=== PATIENT | male | born 1950 | race Caucasian/White ===

== ENCOUNTER → 2016-12-29 | Outpatient (CLI) | payer MEDICARE ==
[~2016-12-29] MED LIST: APIX5TAB PO; CARV25TA2 PO; DILT360C25 PO; FURO40TA5 PO; GABA-336 PO; POTA20TA10 PO; TAMS0.4C47 PO; VERA180T8 PO
--- NOTE | 2016-12-29 11:17 | DI ---
Indication: ITS.REASON: R91.1 PULMONARY NODULE PROCEDURE: CT CHEST W/O CONTRAST: Encounter: Subsequent Comparison: CT angiogram of the chest dated November 04, 2016 Technique: Axial CT images were performed through the chest without intravenous contrast. Coronal and sagittal two-dimensional reformats. Automated Exposure Control and Iterative Reconstruction dose reducing techniques were utilized. Findings: 7 mm right upper lobe pulmonary nodule is unchanged on axial image #10. Paraseptal emphysema is redemonstrated. The prior pleural effusions have resolved. Chronic pleural thickening and scarring in the lingula is unchanged. No new or enlarging pulmonary nodule or mass. This tiny calcified granulomas in the left lower lobe. No pneumothorax. The central airways are patent. No axillary or mediastinal adenopathy. Heart size is stable. Trace pericardial effusion. The upper abdomen shows no acute findings. Bone windows are unremarkable. Impression: 1. Stable size and appearance of the 7 mm right upper lobe pulmonary nodule. Recommend follow-up noncontrast chest CT in 9-12 months to document continued stability. 2. Interval resolution of the prior pleural effusions .
== END ==
LOC: IMA 10:42
PROVIDERS: ATTEND Internal Medicine
DX: R91.1 Solitary pulmonary nodule (principal)

== ENCOUNTER 2017-01-31 13:44 | Outpatient (CLI) | payer MEDICARE ==
[~2017-01-31] VITALS: Ht 182.9 cm; Wt 60.1 kg
[~2017-01-31 13:44] MED LIST changes: +NORMAL SALINE 1,000 ML IV SCH
--- NOTE | 2017-01-31 13:50 | NUR ---
ADMIT PT ADMITTED TO ROOM 122 AT THIS TIME VIA AMBULATORY STATUS. PT USES A CANE TO AMBULATE. PT'S SISTER PRESENT UPON ADMIT. PT REPOSITIONED SELF IN BED. WILL CONTINUE TO MONITOR.
[2017-01-31 13:53] VITALS: Ht 182.9 cm; Wt 60.1 kg
[2017-01-31] MEDS ORDERED: GABA-336 PO (14:15)
[2017-01-31] MEDS ORDERED: DILT180C63 PO (14:15)
[2017-01-31] MEDS ORDERED: AMIO200T2 PO (14:15)
[2017-01-31] MEDS ORDERED: FURO40TA5 PO (14:15)
[2017-01-31] MEDS ORDERED: FERR324T4 PO (14:15)
[2017-01-31] MEDS ORDERED: CARV12.5 PO (14:15)
[2017-01-31 14:18] VITALS: BP 173/93; PULSE 122; RESP 20; TEMP 98.2; O2SAT 99
[2017-01-31 14:20] VITALS: PULSE 122; RESP 20
--- NOTE | 2017-01-31 14:25 | NUR ---
CM CM IN TO VISIT PATIENT, HE IS A&O. FEMALE IS AT THE BEDSIDE. PATIENT PLANS TO DISCHARGE HOME, DENIES ANY DISCHARGE NEEDS. CM CONTACT INFORMATION PROVIDED. Addendum: 01/31/17 at 1425 by PARIS HU RN Amended: Links added.
[2017-01-31 15:04] LABS: BASOPHILS % (AUTO) 0.2 % (0-2); EOSINOPHILS # (AUTO) 0.1 T/MM3 (0-0.5); EOSINOPHILS % (AUTO) 0.8 % (0-4); HCT - HEMATOCRIT 43.6 % (41-53); HGB - HEMOGLOBIN 15.1 GM/DL (13.5-17.5); LYMPHOCYTES % (AUTO) 16.8 % (23-45); MEAN CORPUSCULAR HGB 33.6 UUG (26-34); MEAN CORPUSCULAR HGB CONC(MCHC 34.6 GM/DL (31-37); MEAN CORPUSCULAR VOLUME 96.9 UM3 (80-100); MEAN PLATELET VOLUME 9.9 UM3 (9.4-12.4); MONOCYTES # (AUTO) 0.5 T/MM3 (0-0.8); MONOCYTES % (AUTO) 7.3 % (0-9.0); NEUTROPHILS #(AUTO)-ABSOLUTE 4.7 T/MM3 (1.8-7.7); NEUTROPHILS % (AUTO) 74.9 % (33-66); WBC - WHITE BLOOD COUNT 6.2 T/MM3 (4.5-11.0)
[2017-01-31 15:11] LABS: ANION GAP 15 MEQ/L (5-15); BUN/CREATININE RATIO 12 RATIO (6-26); CALCIUM 9.2 MG/DL (8.4-10.2); CHLORIDE 96 MEQ/L (98-107); CO2 - CARBON DIOXIDE 27 MEQ/L (22-30); GLOMERULAR FILTRATION RATE 74; GLUCOSE 135 MG/DL (75-110); SODIUM 138 MEQ/L (134-144)
--- NOTE | 2017-01-31 16:10 | NUR ---
TO [facility] PT TRANSPORTED TO [facility] AT THIS TIME VIA CART. INFORMED CONSENT OBTAINED PRIOR TO TRANSFER. SISTER PRESENT UPON TRANSFER TO [facility]. PT ATTEMPTED TO VOID PRIOR TO TRANSFER HOWEVER UNSUCCESSFUL. WILL CONTINUE TO MONITOR CLOSELY.
[2017-01-31] MEDS ORDERED: HEPARIN 1,000units in NS 500ml BAG IV ONE (16:16)
[2017-01-31] MEDS ORDERED: LIDOCAINE 1% (10mg/ml) 30ml SDV ONE (16:16)
[2017-01-31] MEDS ORDERED: MIDAZOLAM 2mg/2ml INJECTION ONE (16:19)
[2017-01-31] MEDS ORDERED: FENTANYL 100mcg/2ml INJECTION ONE (16:19)
[2017-01-31] MEDS ORDERED: DILTIAZEM 25mg/5ml INJECTION IV ONE (16:27)
[2017-01-31] MEDS ORDERED: POTASSIUM CHLORIDE 20 MEQ TABLET ONE (16:27)
[2017-01-31] MEDS ORDERED: VERAPAMIL 5mg/2ml INJECTION IV ONE (16:38)
[2017-01-31] MEDS ORDERED: METOPROLOL 5mg/5ml INJECTION IV ONE ×2 (17:02→17:17)
[2017-01-31] MEDS ORDERED: NITROGLYCERIN 0.4 MG SUBLINGUAL TABLET SL PRN (17:15)
[2017-01-31] MEDS ORDERED: ONDANSETRON 4mg/2ml INJECTION IV PRN (17:15)
[2017-01-31] MEDS ORDERED: BISACODYL 10 MG SUPPOSITORY RECTALLY PRN (17:15)
[2017-01-31] MEDS ORDERED: LORAZEPAM 0.5 MG TABLET PO PRN (17:15)
[2017-01-31] MEDS ORDERED: MORPHINE SULFATE 4 MG SYRINGE IV PRN ×2 (17:15)
[2017-01-31] MEDS ORDERED: PROMETHAZINE 25 MG INJECTION IV PRN (17:15)
[2017-01-31] MEDS ORDERED: MILK OF MAGNESIA 30 ML SUSP PO PRN (17:15)
[2017-01-31] MEDS ORDERED: METOCLOPRAMIDE 10mg/2ml INJECTION IV PRN (17:15)
[2017-01-31] MEDS ORDERED: LORAZEPAM 2 MG/ML INJECTION IV PRN (17:15)
[2017-01-31] MEDS ORDERED: BISACODYL 5 MG E.C. TABLET PO PRN (17:15)
[2017-01-31] MEDS ORDERED: ACETAMINOPHEN 325 MG TABLET PO PRN (17:15)
[2017-01-31] MEDS ORDERED: ATROPINE 1 MG/ML VIAL IV PRN (17:15)
[2017-01-31] MEDS ORDERED: MAG-AL + SIM LIQUID 30 ML UDC PO PRN (17:15)
[2017-01-31] MEDS ORDERED: HYDROCODONE/APAP 5 mg/325 mg TABLET PO PRN (17:15)
[2017-01-31] MEDS ORDERED: DIGOXIN 500mcg/2ml INJECTION ONE (17:24)
[2017-01-31] MEDS ORDERED: DILTIAZEM 125 MG in NORMAL SALINE 125 ML IV SCH (17:30)
--- NOTE | 2017-01-31 18:15 | NUR ---
TRANSFER PT TRANSFERRED TO [facility] CICU AT THIS TIME FROM [facility] FOR FURTHER CARDIOVASCULAR SURGERY CONSULT. PT'S SISTERS PRESENT UPON TRANSFER. ALL PERSONAL BELONGINGS AND HOME MEDICATIONS TRANSFERRED WITH PT. PT AND SISTERS VERBALIZED UNDERSTANDING OF DISCHARGE DISPOSITION. DISCHARGE INSTRUCTIONS PRINTED AND SENT WITH PT TO [facility]. NO FURTHER CONCERN BY PT OR PT'S SISTERS AT THIS TIME.
--- NOTE | 2017-02-01 12:24 | CVPROF ---
DATE 01/31/2017 PRIMARY CARE PHYSICIAN [facility] INDICATION The patient is a 66-year-old gentleman with history of peripheral arterial disease and atrial fibrillation with rapid ventricular rate, status post ablation and also status post lower extremity surgical revascularization who had an abnormal lower extremity duplex study and atrial fibrillation with rapid ventricular rate and was referred for further evaluation by angiography. INFORMED CONSENT Informed consent was obtained after explaining the procedure and the potential risks to the patient who agreed to proceed with the procedure. PROCEDURE 1. Abdominal aortography by placing catheter in abdominal aorta. 2. Selective right lower extremity angiogram by placing catheter in right common iliac. 3. Selective left lower extremity angiogram by placing catheter in left common iliac. TECHNIQUE Patient was prepped and draped in the usual sterile techniques. Conscious sedation was performed using Versed and Fentanyl. 1% Lidocaine was used for local anesthesia. Using modified Seldinger technique, arterial access was obtained into the right femoral artery. We tried to advance the wire into the abdominal aorta however it would not cross the external iliac and therefore we changed our approach to radial artery. 1% lidocaine was used for local anesthesia. Using modified Seldinger technique, arterial access was obtained into right radial artery with placement of a 6 [place] arterial sheath. ABDOMINAL AORTOGRAPHY Abdominal aortography showed patent abdominal aorta with patent celiac trunk and SMA. Right renal artery had about 70% stenosis. Left renal artery was not visualized well. Iliacs appeared to have severe disease. SELECTIVE RIGHT LOWER EXTREMITY ANGIOGRAM Selective right lower extremity angiogram showed patent right common iliac. Right external iliac artery was occluded at the ostium. Right internal iliac artery was patent. Right common femoral artery had eccentric 80% stenosis. Right SFA was occluded at the ostium. Right profunda was patent. Right popliteal artery reconstitution was noted distally. Right posterior tibia and peroneal arteries appeared to be patent and right anterior tibial artery was not visualized well. Distal vessels were not visualized well due to upstream occlusion of the vessels and lack of adequate contrast penetration. SELECTIVE LEFT LOWER EXTREMITY ANGIOGRAM Selective left lower extremity angiogram showed patent left common iliac with 80% stenosis. Left external iliac had 90% stenosis. Left internal iliac had 90% stenosis. Left common femoral artery was patent. Left SFA was occluded at the ostium. Left profunda was patent. Reconstitution of the left popliteal artery was noted. Left anterior tibial artery was patent with 80% stenosis. Left posterior tibial artery was patent with 90% stenosis. Left peroneal artery was not visualized well. Patient tolerated the procedure well, with no complications. IMPRESSION 1. Severe peripheral arterial disease as described above. PLAN Will transfer him ti [place] for evaluation by vascular surgeon. We will start him on anticoagulation. Of note, patient was in atrial flutter with rapid ventricular rate and multiple doses of verapamil, diltiazem and metoprolol were administered with no significant improvement in heart rate. Patient may require drips to maintain rate. Will consult electrophysiology in [place] for further evaluation since patient has had ablation in the past. BRENDAN
--- NOTE | 2017-02-01 15:33 | NUR ---
DM Screen Pt transferred to [facility] therefore DM Screen not completed. No further plan for follow up.
== END 2017-01-31 18:15 | disposition short-term general hospital (02) ==
LOC: CATH 13:44 → SRG 13:44 → CATH 18:15
PROVIDERS: ATTEND Internal Medicine Cardiovascular Disease
DX: I70.203 Unspecified atherosclerosis of native arteries of extremities, bilateral legs (principal); I70.1 Atherosclerosis of renal artery; I48.1 Persistent atrial fibrillation; R93.6 Abnormal findings on diagnostic imaging of limbs; Z98.890 Other specified postprocedural states; I47.2 Ventricular tachycardia; I42.9 Cardiomyopathy, unspecified; I12.9 Hypertensive chronic kidney disease with stage 1 through stage 4 chronic kidney disease, or unspecified chronic kidney disease; N18.9 Chronic kidney disease, unspecified; F17.210 Nicotine dependence, cigarettes, uncomplicated; Z68.1 Body mass index [BMI] 19.9 or less, adult; Z95.810 Presence of automatic (implantable) cardiac defibrillator; Z79.899 Other long term (current) drug therapy; Z82.49 Family history of ischemic heart disease and other diseases of the circulatory system
CPT/HCPCS: 36245; 36415; 75625; 75716; 80048; 85025; 93005; A9270; C1769; C1893; J1160; J1644; J2250; J3010; J3490; J7030; Q9967

== ENCOUNTER 2017-05-11 11:54 | Observation (INO) ==
--- NOTE | 2017-05-11 12:11 | Emergency Department Report ---
Asthma HPI - General Stated Complaint: SOA Time Seen by Provider: 05/11/17 12:10 Source: patient, family, old records reviewed Mode of arrival: EMS Limitations: other (phyical condition, patient is poor historian) - History of Present Illness HPI Narrative: 67 YO M brought to ED by EMS for difficulty breathing that started this morning. Patient has has hx. of a-fib and CHF. Sister says that patient has no known lung disease. Patient does smoke 2 packets of cigarettes daily since age 12. Patient states it has not taken any of his prescribed medication this morning. Does not know what medications he takes in the morning. Says that his sister manages his medications. Sister arrives ED and says patient has been coughing "a lot" for last 2-3 weeks. Sister says patient woke up not feeling well this morning. Sister denies any hx. of COPD or other respiratory problems. Patient was given 2 albuterol tx. and 125mg of solu-medrol in route to hospital. Patient's file clerk data entry is Dr. Curran. complaint: shortness of breath Onset (ago): hour(s) Severity: moderate Context: none known Associated symptoms: other (cough) - Related Data Home Medications Medication Instructions Recorded Confirmed Apixaban [Eliquis] 5 mg PO BID #0 11/15/16 05/11/17 Amiodarone HCl 200 mg PO DAILY #0 tab 01/31/17 05/11/17 Gabapentin 100 mg PO TID #0 cap 01/31/17 05/11/17 dilTIAZem HCl [Cardizem Cd] 180 mg PO DAILY #0 cap 01/31/17 05/11/17 Atorvastatin [Lipitor] 20 mg PO HS 05/11/17 05/11/17 Carvedilol 25 mg PO BID 05/11/17 05/11/17 Clopidogrel [Plavix] 75 mg PO DAILY 05/11/17 05/11/17 Potassium Chloride ER Tab [K-Dur] 10 meq PO WB 05/11/17 05/11/17 Allergies Allergy/AdvReac Type Severity Reaction Status Date / Time No Known Drug Allergies AdvReac Unknown Verified 05/11/17 12:05 Review of Systems All systems: reviewed and negative except as stated Cardiovascular: Reports: dyspnea on exertion, orthopnea Respiratory: Reports: as per HPI, dyspnea PFSH Diabetes Hypertension Atrophia relation CAD CHF PAD Pancreatitis Renal insufficiency CVA Alcohol abuse Dementia Surgical History: Appendectomy. Tonsillectomy. Implantable defibrillator. Cardiac Ablasion Family History: Noncontributory - Social History Smoking status: Current every day smoker packs per day: 2 Packs-years: 55 Alcohol intake frequency: former alcohol drinker Current occupational status: retired Physical Exam - General General appearance: alert - Normal Exams: Head:: Normocephalic without trauma Eyes:: No scleral icterus, irritation ENMT:: No facial trauma, nasal exudates Abdomen:: Bowel sounds positive, soft, non-tender, non-distended Musculoskeletal:: No tenderness, or deformity noted Neurological:: Patient is alert Psychiatric:: Patient exhibits, appropriate attention - Respiratory Respiratory exam: Present: crackles (bibasilar). Absent: wheezes - Expanded Respiratory Exam Location: Upper: decreased breath sounds, Lower: decreased breath sounds - Cardiovascular Cardiovascular exam: Present: other (regular-irregular) - Skin Skin exam: Present: warm, dry, other (pale) Course - Consultations Consultation #1: I discussed patient HPI, PMH, labs, CXR, VS, EKG, exam findings with Dr. Grande. Dr. Grande would like patient started on Rocephin. She does not feel patient needs BC. Will admit observation status. Time: 13:25 Vital Signs Temperature 98.3 F 05/11/17 11:54 Respiratory Rate 26 H 05/11/17 11:54 Pulse Oximetry 100 05/11/17 11:54 Temperature 97.8 F 05/11/17 15:03 Pulse Rate 90 05/11/17 14:15 Respiratory Rate 20 05/11/17 20:05 Blood Pressure 170/75 H 05/11/17 14:15 Pulse Oximetry 93 05/11/17 20:05 Dyspnea - MDM Narrative Medical decision making narrative: Patient says he feels like he can breathe better after 40mg of lasix IV. Patient is able to hold oxygen saturation above 96 % off oxygen however he becomes more tachypneic and more tachycardic without O2. WBC 11.0, no bandemia CO2 20 Troponin <0.012 Pro BNP 1900 Other labs noncontributory CXR show chronic pulmonary abnormalities with possible left sided infiltrates. I discussed labs, EKG and CXR with patient/sister and answered questions. Patient admitted observation status. - Differential Diagnosis Differential diagnosis: Likely: PE, Pneumonia, COPD exacerbation, Pulmonary edema systolic, Pulmonary edema dystolic - Medical Records Attestation: I reviewed the patient's medical records. - Lab Data Attestation: I reviewed the patient's lab results. Result diagrams: 05/11/17 12:21 05/11/17 12:21 Lab Results 05/11/17 05/11/17 05/11/17 Range/Units 12:21 12:21 13:37 WBC 11.0 (4.5-11.0) T/MM3 RBC 3.90 L (4.50-5.90) M/MM3 Hgb 13.1 L (13.5-17.5) GM/DL Hct 38.5 L (41-53) % MCV 98.7 (80-100) UM3 MCH 33.6 (26-34) UUG MCHC 34.0 (31-37) GM/DL RDW Std Deviation 51.4 H (36.9-50.2) FL Plt Count 222 (130-400) T/MM3 MPV 9.9 (9.4-12.4) UM3 Immature Gran % (Auto) Not performed Neut % (Auto) Not performed Lymph % (Auto) Not performed [place] % (Auto) Not performed Eos % (Auto) Not performed Baso % (Auto) Not performed Neut # Not performed Lymph # Not performed [place] # Not performed Eos # Not performed Baso # Not performed Abs Immat Gran (auto) Not performed Neutrophils % (Manual) 93.0 H (33-66) % Lymphocytes % (Manual) 2.0 L (23-45) % Monocytes % (Manual) 4.0 (0-9.0) % Basophils % (Manual) 1.0 (0-2) % Neutrophils # (Manual) 10.2 H (1.8-7.7) T/MM3 Lymphocytes # (Manual) 0.2 L (1-4.8) T/MM3 Monocytes # (Manual) 0.4 (0-0.8) T/MM3 Basophils # (Manual) 0.1 (0-0.2) T/MM3 RBC Morph Comment Normal Turbidity < 20 (0-20) Sodium 141 (134-144) MEQ/L Potassium 4.4 (3.6-5) MEQ/L Chloride 105 (98-107) MEQ/L Carbon Dioxide 20 L (22-30) MEQ/L Anion Gap 16 H (5-15) MEQ/L BUN 11.0 (9-20) MG/DL Creatinine 0.8 (0.8-1.5) MG/DL GFR Calculation 96 BUN/Creatinine Ratio 14 (6-26) RATIO Glucose 132 H (75-110) MG/DL Calculated Osmolality 272 (261-280) MOSM/KG Calcium 9.3 (8.4-10.2) MG/DL Magnesium 1.5 L (1.6-2.3) MG/DL Total Bilirubin 0.90 (0.20-1.30) MG/DL Icterus Index < 2 (0-7) AST 43 (17-59) U/L ALT 37 (21-72) U/L Alkaline Phosphatase 157 H (38-126) U/L Troponin I < 0.012 (0-0.12) ng/ml B-Natriuretic Peptide 1900 H (0-175) pg/mL Total Protein 8.0 (6.3-8.2) G/DL Albumin 4.8 (3.5-5.0) G/DL Globulin 3.2 (2.4-3.6) G/DL Albumin/Globulin Ratio 1.5 (1.1-2.2) RATIO TSH 1.21 (0.47-4.68) MIU/L Specimen Hemolysis < 15 (0-25) - Radiology Data Attestation: I reviewed the patient's radiology results. Chronic pulmonary abnormalities, possible left sided infiltrates (Dr. Donaldson) Disposition Clinical Impression: SIRS (systemic inflammatory response syndrome) Dyspnea Qualifiers: Dyspnea type: unspecified Qualified Code(s): R06.00 - Dyspnea, unspecified Disposition: [facility] Condition: Improved - Seen By: midlevel
[2017-05-11] MEDS ORDERED: FUROSEMIDE 40 MG/4 ML INJECTION IVP ONE (12:24)
--- NOTE | 2017-05-11 12:58 | XRay Report ---
Indication: dyspnea PROCEDURE: XR chest 1V: Encounter: Initial Comparison: CT chest dated December 29, 2016 and chest x-ray dated November 04, 2016 Findings: Lungs are hyperinflated with bilateral apical pleural thickening or scarring. There is some new hazy groundglass type opacity seen scattered throughout the left lung. There is chronic pleural thickening seen in both lung bases, left greater than right. Possible superimposed trace left effusion. No pneumothorax. Heart size and mediastinal contours are stable. Pulmonary vascularity is grossly unchanged. Impression: Multiple chronic pulmonary abnormalities with possible superimposed acute left sided infiltrate. .
[2017-05-11] MEDS ORDERED: NS 500 ML IV ONE (13:08)
[2017-05-11] MEDS ORDERED: CEFTRIAXONE (ER USE ONLY) 1 GM in NS 100 ML IV ONE (13:29)
--- NOTE | 2017-05-11 14:21 | History & Physical Report ---
<Chasity Mason V - Last Filed: 05/11/17 15:29> History of Present Illness Date: 05/11/17 Chief complaint: dyspnea HPI: Ochoa is a 67 yr male who is known to the Hospital services from previous admissions. He has in the past been under the care of Dr. Calvillo, however, is in the process of switching to Dr. Kurtis Steiner and has an appointment next Monday. He does see Dr. Curran for his chronic cardiac care. Today he was brought to the emergency room by his sister (DAILY) for worsening dyspnea. She reported that since there are other sibling, sister 2 weeks ago. Jerald has had a significant decline overall in his physical and mental health. She is nursing having increased shortness of breath and coughing for the past 2 weeks. Over the past 24 hours. His dyspnea has gotten significantly worse. He did not take any of his morning medications. On arrival to the emergency room. He is found to be tachycardic between 90 and 130. He is quite tachypnea in the 50s and blood pressures have been stable. Further workup was obtained in the emergency room. White count was found to be normal at 11, hemoglobin 13.1, hematocrit 38.5, platelet count 222, neutrophils 93%. He was 141, potassium 4.4, BUN 11, creatinine 0.8, glucose 132. LFTs are normal. Troponin undetectable, proBNP 1900. Venous lactate was found to be elevated at 2.4. Blood cultures were obtained. Patient was started on empiric antimicrobial coverage, Rocephin 1 gram IV. He was also given Lasix 40 milligrams IV 1 for diuresis seen. His chest x-ray revealed chronic pulmonary abnormalities with a questionable left-sided infiltrate. He is maintaining adequate saturations on room air. Given his acute symptoms. He does meet criteria for sirs with tachycardia and tachypnea. There is a questionable infiltrate. Despite maintain saturations and normal white count. Patient is a poor historian given his history of dementia and alcohol abuse. His sister, DAILY is at the bedside and gives all history. We discussed advanced directives and she wish for him to be a DNR. Review of Systems ROS unobtainable: due to mental status Review of systems: Unable to obtain accurate review of systems due to dementia and mental status. [facility] Patient Stated Medical History Atrial fibrillation Hypertension Congestive Heart Failure History of Myocardial Infarction History of CVA Diabetes Mellitus Type 2 Dementia History of alcohol abuse Peripheral artery disease Chronic anticoagulation Surgical History: Appendectomy. Tonsillectomy. Implantable defibrillator. 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 Calvillo. Establishing with Dr. Kurtis Steiner next week Medications Home Medications Medication Instructions Recorded Confirmed Type Apixaban [Eliquis] 5 mg PO BID #0 11/15/16 05/11/17 History Amiodarone HCl 200 mg PO DAILY #0 tab 01/31/17 05/11/17 History Gabapentin 100 mg PO TID #0 cap 01/31/17 05/11/17 History dilTIAZem HCl [Cardizem Cd] 180 mg PO DAILY #0 cap 01/31/17 05/11/17 History Atorvastatin [Lipitor] 20 mg PO HS 05/11/17 05/11/17 History Carvedilol 25 mg PO BID 05/11/17 05/11/17 History Clopidogrel [Plavix] 75 mg PO DAILY 05/11/17 05/11/17 History Potassium Chloride ER Tab [K-Dur] 10 meq PO WB 05/11/17 05/11/17 History Allergies Allergy/AdvReac Type Severity Reaction Status Date / Time No Known Drug Allergies AdvReac Unknown Verified 05/11/17 12:05 Exam Vital Signs: Temperature 98.3 F 05/11/17 11:54 Pulse Rate 107 H 05/11/17 13:00 Respiratory Rate 50 H 05/11/17 13:00 Blood Pressure 152/82 H 05/11/17 12:45 Pulse Oximetry 100 05/11/17 13:00 Telemetry Rhythm: A-fib with RVR Height: 1.8 m Weight: 65.2 kg - Constitutional Present: moderate distress - Routine HEENT Exam Head: Present: normocephalic, atraumatic Eye: Present: EOMI, PERRL ENT: Present: mucous membranes moist - Routine Respiratory Exam Present: respiratory distress, wheezes, crackles - Routine Cardiovascular Exam Present: S1, S2, tachycardia, irregular rhythm, irregularly irregular - Routine Abdominal Exam Present: soft, normoactive bowel sounds - Routine Extremities Exam Present: full ROM - Routine Skin Exam Present: intact, dry, warm - Routine Neurological Exam Present: alert Results - Labs CBC & Chem 7: 05/11/17 12:21 05/11/17 12:21 Microbiology Results: Microbiology 05/11/17 13:44 Peripheral/Iv Start Blood Culture - Preliminary Culture Initiated - Results Pending 05/11/17 13:40 Peripheral/Iv Start Blood Culture - Preliminary Culture Initiated - Results Pending Assessment and Plan (1) SIRS (systemic inflammatory response syndrome) Current visit: Yes Status: Acute (2) Dyspnea Current visit: Yes Status: Acute DVT Prophylaxis: Eliquis Resuscitation Status: Do Not Resuscitate Assessment and Plan: Impression SIRS(tachycardia, tachypnea) Acute Dyspnea Atrial fib with RVR Congestive heart failure. Next, and coronary artery disease. Type II diabetes Hypertension Dementia history of alcohol abuse Plan Admit patient to outpatient observation under the care of Dr. Grande for SIRS and dyspnea Patient does meet SIRS criteria, tachycardia, tachypnea, however, no specified infection at time of admission. QSOFA- 1/3- score= 1, which is negative at time of admission Ordered Blood cultures, venous lactate pending on admission. Patient empirically covered with IV Rocephin for pulmonary pathogens. Monitor patient on cardiac telemetry, cardiogenic consultation placed to Dr. Curran for further recommendations of diuresis and rate control. Monitor Accu-Cheks routinely. She is chronically Eliquis and Plavix rent a coagulation. Obtain TSH and magnesium for laboratory completeness. SCDs to bilateral lower extremity for DVT prophylaxis. Patient is a do not resuscitate and this orders are written Will discuss further orders and plan of care with attending, Dr. Grande. At time of discharge medical care will return to primary care provider who patient will be establishing with next week, Dr. Kurtis Steiner [facility] Course Summary Disclaimer: The visit summary below is not to be considered part of the above Progress Note. <Eliane Grande - Last Filed: 05/11/17 16:31> History of Present Illness Date: 05/11/17 [facility] Patient Stated Medical History Cardiac Arrhythmia Yes: AFib Congestive Heart Failure Yes Myocardial Infarction Yes: "three of them" Pneumonia Yes Diabetes Mellitus Type 2 Yes Exam Vital Signs: Temperature 97.8 F 05/11/17 15:03 Pulse Rate 90 05/11/17 14:15 Respiratory Rate 27 H 05/11/17 14:15 Blood Pressure 170/75 H 05/11/17 14:15 Pulse Oximetry 95 05/11/17 14:15 Oxygen Delivery Method Room Air Oxygen Flow Rate 2 Height: 1.8 m Weight: 65.2 kg Results - Labs CBC & Chem 7: 05/11/17 12:21 05/11/17 12:21 Microbiology Results: Microbiology 05/11/17 13:44 Peripheral/Iv Start Blood Culture - Preliminary Culture Initiated - Results Pending 05/11/17 13:40 Peripheral/Iv Start Blood Culture - Preliminary Culture Initiated - Results Pending Assessment and Plan (1) Dyspnea Problem details: Multifactorial Current visit: Yes Status: Acute Assessment and Plan: I have independently evaluated and examined this patient. I reviewed the chart, the patient's history, and the BOX SORTER/PA's documented findings as above. We discussed and formulated the assessment and plan as above with additions as below: Mr. Baca presents with increasing dyspnea and cough primarily over the past 24-48 hours. Patient is very vague historically. He denied nausea and vomiting although his sister indicated he has had several episodes of recent emesis. Patient also denied recent edema in his lower extremities which his sister contraindicated. Patient is had no recent chest pain by both historians. The patient is unsure of the nature of the sputum but reports cough has been productive. He is unsure of fever. He feels clinically improved after receiving breathing treatments in the emergency room and initiation of supplemental oxygen although hypoxia was not demonstrated. Ill-appearing male, generalized pallor, drowsy-falls asleep when not actively engaged in discussion Neck veins are not obviously distended and no anterior/posterior cervical adenopathy appreciated Decreased breath sounds throughout with bibasilar rhonchi and faint wheezing bilateral lung martin Low-grade tachycardia, rhythm is fairly regular at the time of my assessment Abdomen benign No lower extremity edema present currently Moves all extremities weakly and hypersensitive to touch/cold 4 extremities Chest x-ray reviewed by myself-hyperinflated lungs, probable left upper infiltrate; radiology describes pleural thickening at the lung bases and groundglass opacities throughout the lungs. Elevated BNP, lactic acid 2.4, procalcitonin less than 0.05, white count 11.0 with left shift Multifactorial acute respiratory failure-probable pneumonia-CAP versus aspiration (altered mental status/increased alcohol consumption recently), possible COPD exacerbation, probable component of CHF due to discontinuation of Lasix at some point in the past 2 months. Add prednisone 40 mg daily, ceftriaxone/doxycycline for CAP pending cultures. Diuretics resumed per cardiology. Discussed with ER provider and cardiology; supplemental history provided by patient's DPOA/sister, DO NOT RESUSCITATE confirmed, chest x-ray reviewed by myself, laboratory data reviewed and compared to prior hospital visits. Hospital Course Summary Disclaimer: The visit summary below is not to be considered part of the above Progress Note.
--- NOTE | 2017-05-11 14:31 | Cardiology Consult Note ---
History of Present Illness Consult date: 05/11/17 <Johanna Clark 05/11/17 14:44> Requesting physician: Eliane Grande <AmberJohanna benavides 05/11/17 14:44> Consult reason: congestive heart failure <Amber,Johanna Julia 05/11/17 14:44> Chief complaint: difficulty breathing <AmberJohanna 05/11/17 14:44> History of present illness: Severiano is a 66-year-old gentleman who is well known to Dr. Curran who has a history of Cardiomyopathy with [employer] AICD, persistent atrial fibrillation, HTN and CKD who was brought in by EMS for difficulty breathing. His sister called to have him transported and says patient has been coughing "a lot" for last 2-3 weeks with increased shortness of breath. Sister says patient woke up not feeling well this morning. Sister denies any history of COPD or other respiratory problems. He smokes 2 packs of cigarettes a day since age 12. He denies any chest pain. Dr Curran is consulted and the plan of care will be on rate control rather than rhythm control, and diuresis. <Johanna Clark 05/11/17 15:21> Review of Systems ROS unobtainable: due to mental status <AmberJohanna glasgow 05/11/17 15:21> [facility] Patient Stated Medical History Cardiac Arrhythmia Yes: AFib Congestive Heart Failure Yes Myocardial Infarction Yes: "three of them" Pneumonia Yes Diabetes Mellitus Type 2 Yes <Marc Curran - 05/15/17 15:58> Patient Stated Medical History Cardiac Arrhythmia Yes: Persistent AFib Congestive Heart Failure Yes Myocardial Infarction Yes Pneumonia Yes Diabetes Mellitus Type 2 Yes <Johanna Clark 05/11/17 14:44> Surgical History: Appendectomy. Tonsillectomy. Implantable defibrillator - [employer] AICD. Cardiac Ablasion <Johanna Clark 05/11/17 14:44> Family History: Brother- [place] Mother- heart disease <Johanna Clark 05/11/17 14:44> - Social History Smoking status: Current every day smoker <Johanna Clark 05/11/17 14:44> packs per day: 2 <Johanna Clark - 05/11/17 14:44> Substance use type: does not use <Johanna Clark - 05/11/17 14:44> Alcohol intake frequency: former alcohol drinker <Johanna Clark - 05/11/17 14 :44> Household members: family (sister and nephew), other (sister) <Johanna Clark - 05/12/17 16:16> Current occupational status: disabled <Johanna Clark - 05/12/17 16:16> Current residence: Apartment/Private Home <Johanna Clark - 05/12/17 16:16> Medications Home Medications Medication Instructions Recorded Confirmed Type Apixaban [Eliquis] 5 mg PO BID #0 11/15/16 05/11/17 History Amiodarone HCl 200 mg PO DAILY #0 tab 01/31/17 05/11/17 History Gabapentin 100 mg PO TID #0 cap 01/31/17 05/11/17 History dilTIAZem HCl [Cardizem Cd] 180 mg PO DAILY #0 cap 01/31/17 05/11/17 History Atorvastatin [Lipitor] 20 mg PO HS 05/11/17 05/11/17 History Carvedilol 25 mg PO BID 05/11/17 05/11/17 History Clopidogrel [Plavix] 75 mg PO DAILY 05/11/17 05/11/17 History Potassium Chloride ER Tab [K-Dur] 10 meq PO WB 05/11/17 05/11/17 History <Marc Curran - 05/15/17 15:58> Allergies Allergy/AdvReac Type Severity Reaction Status Date / Time No Known Drug Allergies AdvReac Unknown Verified 05/11/17 12:05 <Marc Curran - 05/15/17 15:58> Exam Vital signs: Temperature 98.1 F 05/12/17 07:31 Pulse Rate 84 05/12/17 07:20 Respiratory Rate 20 05/12/17 15:00 Blood Pressure 132/68 05/12/17 07:20 Pulse Oximetry 96 05/12/17 15:00 Oxygen Delivery Method Room Air Oxygen Flow Rate 2 <Marc Curran - 05/15/17 15:58> Temperature 98.3 F 05/11/17 11:54 Pulse Rate 107 H 05/11/17 13:00 Respiratory Rate 50 H 05/11/17 13:00 Blood Pressure 152/82 H 05/11/17 12:45 Pulse Oximetry 100 05/11/17 13:00 <Johanna Clark - 05/11/17 14:44> - Constitutional mild distress, cooperative <Johanna Clark 05/11/17 15:21> - Routine HEENT Exam Head: Present: normocephalic <Johanna Clark 05/11/17 15:21> ENT: Present: mucous membranes moist <Johanna Calrk 05/11/17 15:21> - Routine Neck Exam Present: carotid bruit (left) <Johanna Clark 05/11/17 14:44> - Routine Chest/Breast/Axilla Exam Chest wall: Absent: tenderness <Johanna Clark 05/11/17 15:21> - Routine Respiratory Exam Present: decreased breath sounds, wheezes. Absent: CTA bilaterally <Johanna Clark 05/11/17 15:21> - Routine Cardiovascular Exam Present: tachycardia, irregularly irregular <Johanna Clark 05/11/17 15:21> - Routine Abdominal Exam Present: soft, normoactive bowel sounds <Johanna Clark 05/11/17 15:21> - Routine Skin Exam Present: intact, warm <Johanna Clark 05/11/17 15:21> - Routine Neurological Exam Present: alert <Johanna Clark 05/11/17 15:21> - Routine Psychiatric Exam Present: normal affect <Johanna Clark 05/11/17 15:21> Results 05/12/17 04:38 05/12/17 04:38 <Marc Curran - 05/15/17 15:58> Abnormal Lab Results 05/11/17 05/11/17 05/11/17 16:53 17:35 23:20 WBC RBC Hgb Hct MCV MCH MCHC RDW Std Deviation Plt Count MPV Immature Gran % (Auto) Neut % (Auto) Lymph % (Auto) Pettis % (Auto) Eos % (Auto) Baso % (Auto) Neut # Lymph # Pettis # Eos # Baso # Abs Immat Gran (auto) Neutrophils % (Manual) Band Neutrophils % Lymphocytes % (Manual) Monocytes % (Manual) Neutrophils # (Manual) Band Neutrophils # Lymphocytes # (Manual) Monocytes # (Manual) RBC Morph Comment Turbidity Sodium Potassium Chloride Carbon Dioxide Anion Gap BUN Creatinine GFR Calculation BUN/Creatinine Ratio Glucose Calculated Osmolality Calcium Magnesium Icterus Index Troponin I < 0.012 < 0.012 Plasma Lactate 1.2 Specimen Hemolysis < 15 21 Adenovirus (PCR) Negative B.parapertussis DNA PCR Negative C. pneumoniae DNA (PCR) Negative Coronavirus OC43 (PCR) Negative Coronavirus HKU1 (PCR) Negative Coronavirus 229E (PCR) Negative Coronavirus NL63 (PCR) Negative Human Metapneumovirus Negative Influenza Type A (PCR) Negative Influenza Type B (PCR) Negative M. pneumoniae (PCR) Negative Parainfluenza 1 (PCR) Negative Parainfluenza 2 (PCR) Negative Parainfluenza 3 (PCR) Negative Parainfluenza 4 (PCR) Negative RSV (PCR) Negative Entero/Rhino (PCR) Negative 05/12/17 05/12/17 05/12/17 04:38 04:38 04:38 WBC 4.7 D RBC 3.78 L Hgb 12.6 L Hct 36.8 L MCV 97.4 MCH 33.3 MCHC 34.2 RDW Std Deviation 49.4 Plt Count 199 MPV 9.8 Immature Gran % (Auto) Not performed Neut % (Auto) Not performed Lymph % (Auto) Not performed Pettis % (Auto) Not performed Eos % (Auto) Not performed Baso % (Auto) Not performed Neut # Not performed Lymph # Not performed Pettis # Not performed Eos # Not performed Baso # Not performed Abs Immat Gran (auto) Not performed Neutrophils % (Manual) 91.0 H Band Neutrophils % 3.0 Lymphocytes % (Manual) 5.0 L Monocytes % (Manual) 1.0 Neutrophils # (Manual) 4.3 Band Neutrophils # 0.1 Lymphocytes # (Manual) 0.2 L Monocytes # (Manual) 0.0 RBC Morph Comment Normal Turbidity < 20 Sodium 136 Potassium 3.8 Chloride 98 D Carbon Dioxide 23 Anion Gap 15 BUN 19.0 D Creatinine 0.9 GFR Calculation 84 BUN/Creatinine Ratio 21 Glucose 215 H Calculated Osmolality 270 Calcium 8.9 Magnesium 1.9 D Icterus Index < 2 Troponin I < 0.012 Plasma Lactate Specimen Hemolysis < 15 Adenovirus (PCR) B.parapertussis DNA PCR C. pneumoniae DNA (PCR) Coronavirus OC43 (PCR) Coronavirus HKU1 (PCR) Coronavirus 229E (PCR) Coronavirus NL63 (PCR) Human Metapneumovirus Influenza Type A (PCR) Influenza Type B (PCR) M. pneumoniae (PCR) Parainfluenza 1 (PCR) Parainfluenza 2 (PCR) Parainfluenza 3 (PCR) Parainfluenza 4 (PCR) RSV (PCR) Entero/Rhino (PCR) <Johanna Clark - 05/12/17 16:16> - Imaging and Cardiology EKG results: image reviewed <Johanna Clark - 05/12/17 16:16> Imaging & Cardiology Narrative: Date of Exam: 05/11/17 Ordering Provider: Stacy Garcia APRN Type of Exam(s): XR chest 1V Reason for Exam(s): dyspnea Indication: dyspnea PROCEDURE: XR chest 1V: Encounter: Initial Comparison: CT chest dated December 29, 2016 and chest x-ray dated November 04, 2016 Findings: Lungs are hyperinflated with bilateral apical pleural thickening or scarring. There is some new hazy groundglass type opacity seen scattered throughout the left lung. There is chronic pleural thickening seen in both lung bases, left greater than right. Possible superimposed trace left effusion. No pneumothorax. Heart size and mediastinal contours are stable. Pulmonary vascularity is grossly unchanged. Impression: Multiple chronic pulmonary abnormalities with possible superimposed acute left sided infiltrate. <Johanna Clark - 05/12/17 16:16> EKG interpretations - MO, pacemaker, normal Pacemaker: ventricular pacing w/capture (except when refractory) <Johanna Clark - 05/12/17 16:16> Assessment and Plan (1) Dyspnea Status: Acute (2) Persistent atrial fibrillation Status: Acute (3) Other cardiomyopathies Status: Acute (4) Atherosclerosis of [place] artery of both lower extremities Status: Acute (5) Essential (primary) hypertension Status: Acute (6) Presence of automatic implantable cardioverter-defibrillator Status: Acute (7) Left carotid bruit Status: Acute (8) Acute on chronic systolic (congestive) heart failure Status: Acute <Marc Curran - 05/15/17 15:58> (1) Dyspnea Status: Acute (2) Persistent atrial fibrillation Status: Acute Resume home meds: Amiodarone, Cardizem, Eliquis and Coreg. Replace Mag. (3) Other cardiomyopathies Status: Acute (4) Atherosclerosis of [place] artery of both lower extremities Status: Acute Continue Aspirin and Plavix (5) Essential (primary) hypertension Status: Acute (6) Presence of automatic implantable cardioverter-defibrillator Status: Acute (7) Left carotid bruit Status: Acute (8) Acute on chronic systolic (congestive) heart failure Status: Acute Diurese with Lasix 40mg IV q12h. Home with Lasix 40mg po daily, monitor renal and electrolytes. Replace Mag. <Johanna Clark - 05/12/17 16:10> - Attestation Attestation Narrative: 05/15/17 15:55 Recommendation After examining the patient I agree with the above assessment. I am involved in the formulation of the patient's plan of care. <Marc Curran - 05/15/17 15:58> Hospital Course Summary Disclaimer: The visit summary below is not to be considered part of the above Progress Note. <Marc Curran - 05/15/17 15:58> The visit summary below is not to be considered part of the above Progress Note. <Johanna Clark - 05/11/17 14:44> Hospital Course: 05/11/17 SCHF:Diurese with Lasix 40mg IV q12h. Home with Lasix 40mg po daily, monitor renal and electrolytes. Replace Mag. AFib: Resume home meds: Amiodarone, Cardizem, Eliquis and Coreg. Replace Mag. PAD: Continue Aspirin and Plavix <Johanna Clark - 05/12/17 16:16>
[2017-05-11] MEDS ORDERED: FALL RISK - PHARMACY CONSULT XX ONE (15:25)
[2017-05-11] MEDS ORDERED: NS FLUSH BAG 500ml IV PRN (15:36)
[2017-05-11] MEDS: MAGNESIUM SULFATE 1gm PREMIX 1 GM/100 ML BAG IV SCH ×2 (15:46→17:33)
[2017-05-11] MEDS: CLOPIDOGREL 75 MG TABLET PO SCH (15:47)
[2017-05-11] MEDS: GABAPENTIN 100 MG CAPSULE PO SCH ×2 (15:47→20:33)
[2017-05-11] MEDS: CARVEDILOL 25 MG TABLET PO SCH (16:50)
[2017-05-11] MEDS: PredniSONE 20 MG TABLET PO SCH (16:50)
[2017-05-11] MEDS: AMIODARONE 200 MG TABLET PO SCH (17:52)
[2017-05-11] MEDS: APIXABAN 5 MG TABLET PO SCH (20:33)
[2017-05-11] MEDS: FUROSEMIDE 40 MG/4 ML INJECTION IVP SCH (20:33)
[2017-05-11] MEDS: ATORVASTATIN 20 MG TABLET PO SCH ×2 (20:34→22:09)
[2017-05-12] MEDS ORDERED: DiphenhydrAMINE 25 MG CAPSULE PO PRN (02:41)
[2017-05-12] MEDS ORDERED: ONDANSETRON ODT 4 MG TABLET PO PRN (02:49)
[2017-05-12] MEDS ORDERED: DiphenhydrAMINE 25 MG CAPSULE PO ONE (03:00)
[2017-05-12] MEDS ORDERED: DiphenhydrAMINE 25 MG CAPSULE PO SCH (03:00)
[2017-05-12] MEDS: SALINE FLUSH 10ml SYRINGE IVF PRN ×2 (03:11→08:49)
[2017-05-12 07:21] VITALS: BP 132/68; PULSE 84
[2017-05-12 07:32] VITALS: TEMP 98.1
[2017-05-12 07:48] VITALS: RESP 20
[2017-05-12] MEDS: FUROSEMIDE 40 MG/4 ML INJECTION IVP SCH (08:49)
[2017-05-12] MEDS: APIXABAN 5 MG TABLET PO SCH (08:49)
[2017-05-12] MEDS: CLOPIDOGREL 75 MG TABLET PO SCH (08:49)
[2017-05-12] MEDS: GABAPENTIN 100 MG CAPSULE PO SCH ×2 (08:50→14:51)
[2017-05-12] MEDS: PredniSONE 20 MG TABLET PO SCH (08:50)
[2017-05-12] MEDS: CARVEDILOL 25 MG TABLET PO SCH (08:50)
[2017-05-12] MEDS: AMIODARONE 200 MG TABLET PO SCH (08:56)
[2017-05-12] MEDS ORDERED: CEFTRIAXONE 1 G in NS 100 ML IV SCH (09:00)
[2017-05-12] MEDS ORDERED: TETANUS, DIPHTHERIA, a PERTUSSIS (Tdap) 0.5ml INJECTION IM ONE (15:09)
[2017-05-12 15:12] VITALS: O2SAT 96
[2017-05-12] MEDS ORDERED: PNEUMOCOCCAL 13 VACCINE 0.5ml INJECTION IM ONE (15:16)
[2017-05-12] MEDS ORDERED: DOBUTAMINE IV PRN (15:20)
--- NOTE | 2017-05-12 15:23 | Discharge Instructions ---
Discharge Plan - Med Rec/Dispo Referrals/Follow Up: Janis Steiner MD [Physician] - (Please follow up with Dr Steiner in 1 week Will need BMP at that time) Marc Curran MD [Physician] - (Please schedule follow up apt in 2 weeks) Prescriptions: New Furosemide [Lasix] 1 tab PO DAILY #30 tab Sacubitril/Valsartan 24-26 [Entresto 24 mg-26 mg Tablet] 1 tab PO BID #30 tablet PredniSONE [Deltasone] 40 mg PO WB #8 tablet Continue Apixaban [Eliquis] 5 mg PO BID #0 dilTIAZem HCl [Cardizem Cd] 180 mg PO DAILY #0 cap Gabapentin 100 mg PO TID #0 cap Atorvastatin [Lipitor] 20 mg PO HS Clopidogrel [Plavix] 75 mg PO DAILY Carvedilol 25 mg PO BID Potassium Chloride ER Tab [K-Dur] 10 meq PO WB Amiodarone HCl 200 mg PO DAILY #0 tab Discharge Instructions/Outpatient Orders: Final Provider Discharge Instructions Location: Determined By Patient - Disposition 01 Discharged Home, Self-Care
--- NOTE | 2017-05-12 15:45 | Discharge Summary ---
Discharge Information Date of admission: 05/11/17 13:37 <Melisa Argueta - 05/12/17 16:21> 05/11/17 13:37 <Chasity Mason V - 05/12/17 15:47> Anticipated date of discharge: 05/12/17 <Chasity Masno V - 05/12/17 15:47> Attending Physician: Eliane Grande MD <Melisa Argueta - 05/12/17 16:21> Eliane Grande MD <Chasity Mason V - 05/12/17 15:47> Primary care physician: John Paul Calvillo DO <Melisa Argueta - 05/12/17 16:21> Dr. Kurtis Steiner <Chasity Mason V - 05/12/17 15:47> Consults: 05/11/17 14:11 Physician Consult [CONS] Routine Consulting Provider: Marc Curran Reason For Exam: dyspnea Ordering Provider has Notified Roofer Applicator: No <Melisa Argueta - 05/12/17 16:21> 05/11/17 14:11 Physician Consult [CONS] Routine Reason For Exam: dyspnea Consulting Provider: Marc Curran Ordering Provider has Notified Roofer Applicator: No <Chasity Mason V - 05/12/17 15:47> - Discharge Diagnosis Discharge Diagnosis: Dyspnea- Improved CHF- Chronic Chronic A-fib DM PAD Dementia A call abuse Chronic anticoagulation <Chasity Mason V - 05/12/17 15:47> - Procedures Procedures: None <Chasity Mason V - 05/12/17 15:47> - Laboratory Labs: 05/12/17 04:38 05/12/17 04:38 <Melisa Argueta - 05/12/17 16:21> 05/12/17 04:38 05/12/17 04:38 <Chasity Mason V - 05/12/17 15:47> - Microbiology Microbiology 05/11/17 13:44 Peripheral/Iv Start Blood Culture - Preliminary No Growth After 1 Day 05/11/17 13:40 Peripheral/Iv Start Blood Culture - Preliminary No Growth After 1 Day <Melisa Argueta - 05/12/17 16:21> Microbiology 05/11/17 13:44 Peripheral/Iv Start Blood Culture - Preliminary No Growth After 1 Day 05/11/17 13:40 Peripheral/Iv Start Blood Culture - Preliminary No Growth After 1 Day <Chasity Mason V - 05/12/17 15:47> - Radiology Radiology: Chest Xray- multiple chronic pulmonary abnormalities <Chasity Mason V - 05/12/17 15:47> - Pathology None <Chasity Mason V - 05/12/17 15:47> History of Present Illness HPI: Ochoa is a 67 yr male who is known to the Hospital services from previous admissions. He has in the past been under the care of Dr. Calvillo, however, is in the process of switching to Dr. Kurtis Steiner and has an appointment next Monday. He does see Dr. Curran for his chronic cardiac care. Today he was brought to the emergency room by his sister (DAILY) for worsening dyspnea. She reported that since there are other sibling, sister 2 weeks ago. Jerald has had a significant decline overall in his physical and mental health. She is nursing having increased shortness of breath and coughing for the past 2 weeks. Over the past 24 hours. His dyspnea has gotten significantly worse. He did not take any of his morning medications. On arrival to the emergency room. He is found to be tachycardic between 90 and 130. He is quite tachypnea in the 50s and blood pressures have been stable. Further workup was obtained in the emergency room. White count was found to be normal at 11, hemoglobin 13.1, hematocrit 38.5, platelet count 222, neutrophils 93%. He was 141, potassium 4.4, BUN 11, creatinine 0.8, glucose 132. LFTs are normal. Troponin undetectable, proBNP 1900. Venous lactate was found to be elevated at 2.4. Blood cultures were obtained. Patient was started on empiric antimicrobial coverage, Rocephin 1 gram IV. He was also given Lasix 40 milligrams IV 1 for diuresis seen. His chest x-ray revealed chronic pulmonary abnormalities with a questionable left-sided infiltrate. He is maintaining adequate saturations on room air. Given his acute symptoms. He does meet criteria for sirs with tachycardia and tachypnea. There is a questionable infiltrate. Despite maintain saturations and normal white count. Patient is a poor historian given his history of dementia and alcohol abuse. His sister, DAILY is at the bedside and gives all history. We discussed advanced directives and she wish for him to be a DNR. <Chasity Mason V - 05/12/17 15:47> Hospital Course This is a general summary of the patient's hospital course. For more details refer to the complete medical record. <Melisa Argueta - 05/12/17 16:21> This is a general summary of the patient's hospital course. For more details refer to the complete medical record. <Chasity Mason V - 05/12/17 15:47> Hospital course: I have independently evaluated and examined this patient. I reviewed the chart, the patient's history, and the ELECTRICIAN UNDERGROUND/PA's documented findings as above. We discussed and formulated the assessment and plan as above with additions as below. The patient is laying in bed asking when he can go home. He is getting ready to undergo a breathing treatment. He denies any new problems. He did work with physical therapy and occupational therapy earlier today. He is on room air and he reports he is breathing without difficulty. In general, the patient is alert and oriented 3, cooperative with exam, and in no respiratory distress. HEENT: Head is atraumatic, normocephalic mucous membranes are moist and pink. Lungs: Clear to auscultation without wheezes, crackles or rhonchi CV: Regular rate and rhythm without murmur Abdomen: Soft, nontender, bowel sounds are present, there is no guarding no rebound. Extremities: No clubbing, no cyanosis, no edema. Skin: Warm and dry no sign of rash Neuro: Patient is alert The patient has been seen by Dr. Robertson who has left his recommendations for discharge. He will be restarted on his Lasix. <Melisa Argueta - 05/12/17 16:21> Jerald was admitted yesterday under the care of the hospitalist services for observation. At that time. He did meet sirs criteria with increased dyspnea. His Q Aguilar score at that time was 1, indicating negative for acute sepsis process. He was empirically covered with IV Rocephin. Given his other underlying pulmonology comorbidities. He was started on gentle diuresis seen and Dr. Curran was consulted for further cardiac evaluation. He did go a pacemaker interrogation that was negative. He was started on prednisone 40 milligrams daily to assist in pulmonary inflammation. Given likelihood of underlying COPD. Overnight Jerald improved significantly. His mentation has improved today. His breathing is less labored and he continues on room air without evidence of dyspnea. Did discuss discharge plans with cardiology team and Dr. Curran. He will be placing patient on a new medication Entresto (Sacubitril/Valsartan) 24-26. Patient is given a 30 day sample of this at time of discharge. He will also continue on Lasix 40 milligrams daily. He does chronically take potassium supplementation. Will give him for additional days of oral prednisone to assist with pulmonary inflammation. He is instructed to follow-up with his attending, Dr. Kurtis Steiner this week. He is also instructed to follow with cardiology in 2 weeks. Patient's sister, Raisa ([email or web address]) was contacted this afternoon. Reviewed plan of care, further questions. <Chasity Mason V - 05/12/17 15:47> DVT Prophylaxis: Eliquis <Chasity Mason V - 05/12/17 15:47> Discharge Plan - Med Rec/Dispo Referrals/Follow Up: Marc Curran MD [Physician] - (Please schedule follow up apt in 2 weeks) Janis Steiner MD [Physician] - (Please follow up with Dr Steiner in 1 week Will need BMP at that time) <Melisa Argueta - 05/12/17 16:21> Truven Instructions: A-fib (Atrial Fibrillation) (DC) <Melisa Argueta - 05/12/17 16:21> Prescriptions: New Furosemide [Lasix] 1 tab PO DAILY #30 tab Sacubitril/Valsartan 24-26 [Entresto 24 mg-26 mg Tablet] 1 tab PO BID #30 tablet PredniSONE [Deltasone] 40 mg PO WB #8 tablet Continue Apixaban [Eliquis] 5 mg PO BID #0 dilTIAZem HCl [Cardizem Cd] 180 mg PO DAILY #0 cap Gabapentin 100 mg PO TID #0 cap Atorvastatin [Lipitor] 20 mg PO HS Clopidogrel [Plavix] 75 mg PO DAILY Carvedilol 25 mg PO BID Potassium Chloride ER Tab [K-Dur] 10 meq PO WB Amiodarone HCl 200 mg PO DAILY #0 tab <Melisa Argueta - 05/12/17 16:21> Discharge Instructions/Outpatient Orders: Final Provider Discharge Instructions Location: Determined By Patient <Melisa Argueta 05/12/17 16:21>
[2017-05-12] MEDS ORDERED: PNEUMOCOCCAL VAC ADMIN CHARGE INJ ONE (15:59)
--- NOTE | 2017-05-12 16:20 | Cardiology Progress Note ---
Subjective Principal diagnosis: F/U Systolic CHF <Johanna Clark - 05/12/17 16:21> Interval history: Ochoa in sitting up in bed in his room on Medical. He denies chest pain or pressure, palpitations, dyspnea, dizziness or lightheadedness. <Johanna Clark - 05/12/17 16:21> Exam Vital signs: Temperature 98.1 F 05/12/17 07:31 Pulse Rate 84 05/12/17 07:20 Respiratory Rate 20 05/12/17 15:00 Blood Pressure 132/68 05/12/17 07:20 Pulse Oximetry 96 05/12/17 15:00 Oxygen Delivery Method Room Air Oxygen Flow Rate 2 <Marc Curran - 05/15/17 16:06> Temperature 98.1 F 05/12/17 07:31 Pulse Rate 84 05/12/17 07:20 Respiratory Rate 20 05/12/17 15:00 Blood Pressure 132/68 05/12/17 07:20 Pulse Oximetry 96 05/12/17 15:00 Oxygen Delivery Method Room Air Oxygen Flow Rate 2 <Johanna Clark - 05/12/17 16:21> - Constitutional no acute distress, thin, cooperative <Johanna Clark 05/12/17 16:21> - Routine HEENT Exam Head: Present: normocephalic <AmberJohanna Dumont 05/12/17 16:21> ENT: Present: mucous membranes moist <Johanna Clark 05/12/17 16:21> - Routine Neck Exam Present: carotid bruit. Absent: JVD <Johanna Clark Julia 05/12/17 16:21> - Routine Chest/Breast/Axilla Exam Chest wall: Absent: tenderness <AmberJohanna Julia 05/12/17 16:21> - Routine Respiratory Exam Present: CTA bilaterally. Absent: rales, wheezes <AmberJohanna glasgow 05/12/17 16:21> - Routine Cardiovascular Exam Present: irregularly irregular. Absent: JVD <Johanna Clark 05/12/17 16:21> - Routine Abdominal Exam Present: soft, normoactive bowel sounds <Johanna Clark 05/12/17 16:21> - Routine Extremities Exam Present: no edema <Johanna Clark 05/12/17 16:21> - Routine Skin Exam Present: intact, dry, warm <Johanna Clark 05/12/17 16:21> - Routine Neurological Exam Present: alert <Johanna Clark 05/12/17 16:21> - Routine Psychiatric Exam Present: normal affect <Johanna Clark 05/12/17 16:21> Progress Note-A&P (1) Dyspnea Status: Acute (2) Persistent atrial fibrillation Status: Acute (3) Other cardiomyopathies Status: Acute (4) Atherosclerosis of [place] artery of both lower extremities Status: Acute (5) Essential (primary) hypertension Status: Acute (6) Presence of automatic implantable cardioverter-defibrillator Status: Acute (7) Left carotid bruit Status: Acute (8) Acute on chronic systolic (congestive) heart failure Status: Acute <ChaparritaguanacoMarc - 05/15/17 16:06> (1) Dyspnea Status: Acute Assessment and plan: improved (2) Persistent atrial fibrillation Status: Acute (3) Other cardiomyopathies Status: Acute (4) Atherosclerosis of [place] artery of both lower extremities Status: Acute (5) Essential (primary) hypertension Status: Acute (6) Presence of automatic implantable cardioverter-defibrillator Status: Acute (7) Left carotid bruit Status: Acute (8) Acute on chronic systolic (congestive) heart failure Status: Acute Assessment and plan: No JVD today. Add Entresto 24/ po BID. <Johanna Clark 05/15/17 15:13> - Time Spent With Patient Total time spent is greater than 50% in coordination of care (as documented) at patient's floor/unit and/or counseling patient: <ChaparritaMarc blanc - 05/15/17 16:06> Total time spent is greater than 50% in coordination of care (as documented) at patient's floor/unit and/or counseling patient: <AmberJohanna Julia 05/12/17 16:21> less than 15 minutes <AmberJohanna Julia 05/15/17 15:13> - Attestation Attestation Narrative: Recommendation After examining the patient I agree with the above assessment. I am involved in the formulation of the patient's plan of care. <Marc Curran 05/15/17 16:06> Sepsis Assessment - Evaluation Sepsis screening result: No Definite Risk <Johanna Clark - 05/12/17 16:21> Hospital Course Summary Disclaimer: The visit summary below is not to be considered part of the above Progress Note. <Marc Curran - 05/15/17 16:06> The visit summary below is not to be considered part of the above Progress Note. <Johanna Clark - 05/12/17 16:21> Hospital Course: 05/11/17 SCHF:Diurese with Lasix 40mg IV q12h. Home with Lasix 40mg po daily, monitor renal and electrolytes. Replace Mag. AFib: Resume home meds: Amiodarone, Cardizem, Eliquis and Coreg. Replace Mag. PAD: Continue Aspirin and Plavix 05/12/17 16:20 No JVD today. Add Entresto po BID. Home with Lasix 40mg daily, Follow up in 2 weeks. <Johanna Clark - 05/12/17 16:21>
== END 2017-05-12 16:00 | disposition home or self-care (01) ==
LOC: ED 11:54 → MED 11:54
PROVIDERS: ADMIT Internal Medicine; ATTEND Internal Medicine

== ENCOUNTER 2017-06-15 09:59 | Inpatient (IN) ==
[2017-06-15] MEDS ORDERED: ONDANSETRON 4 MG/2 ML INJECTION IV ONE (10:02)
--- NOTE | 2017-06-15 10:13 | Emergency Department Report ---
General Adult HPI - General Stated complaint: Diff Breathing Time Seen by Provider: 06/15/17 10:13 Source: patient, EMS, old records reviewed Mode of arrival: EMS Limitations: no limitations - History of Present Illness HPI narrative: Patient is a 67-year-old male, presents to the emergency department for shortness of air. Patient was admitted overnight a few weeks ago with improvement of symptoms, did see his doctor yesterday everything was "fine". Patient woke this morning with significant shortness of air, difficulty breathing uses no oxygen at home. EMS was called patient's oxygen saturations were found to be in the 80s patient was audible wheezing, patient was given Solu -Medrol and 2 albuterol treatments in route. Onset (ago): hour(s) - Related Data Home Medications Medication Instructions Recorded Confirmed Apixaban [Eliquis] 5 mg PO BID #0 11/15/16 06/15/17 Amiodarone HCl 100 mg PO DAILY #0 tab 01/31/17 06/15/17 Gabapentin 100 mg PO TID #0 cap 01/31/17 06/15/17 dilTIAZem HCl [Cardizem Cd] 180 mg PO DAILY #0 cap 01/31/17 06/15/17 Atorvastatin [Lipitor] 20 mg PO HS 05/11/17 06/15/17 Carvedilol 25 mg PO BID 05/11/17 06/15/17 Clopidogrel [Plavix] 75 mg PO DAILY 05/11/17 06/15/17 Potassium Chloride [K-Dur] 10 meq PO WB 05/11/17 06/15/17 Furosemide [Lasix] 40 mg PO DAILY 06/04/17 06/15/17 Previous Rx's Medication Instructions Recorded Sacubitril/Valsartan 24-26 1 tab PO BID #30 tablet 05/12/17 [Entresto 24 mg-26 mg Tablet] Albuterol Inhaler [Ventolin Hfa 90 2 puff ORAL INH Q4H #2 inhaler 06/04/17 mcg/actuation] Fluticasone/Salmeterol 250/50 1 puff INH BID #1 inh 06/04/17 [Advair 250-50 Diskus] Allergies Allergy/AdvReac Type Severity Reaction Status Date / Time No Known Drug Allergies AdvReac Unknown Verified 06/15/17 11:09 Review of Systems Constitutional: Reports: weakness. Denies: fever, chills ENT: Denies: throat pain, dental pain Cardiovascular: Reports: palpitations, dyspnea on exertion. Denies: chest pain Respiratory: Reports: cough, dyspnea, wheezes Gastrointestinal: Reports: nausea. Denies: abdominal pain, vomiting Neurological: Denies: headache, weakness, numbness PFSH Patient Stated Medical History Cardiac Arrhythmia Yes: AFib Congestive Heart Failure Yes Myocardial Infarction Yes: "three of them" Pneumonia Yes Diabetes Mellitus Type 2 Yes Surgical History: Appendectomy. Tonsillectomy. Implantable defibrillator - [employer] AICD. Cardiac Ablasion - Social History Smoking status: Current every day smoker Substance use type: does not use Current residence: Apartment/Private Home Physical Exam - Limitations Limitations: no limitations - General General appearance: alert - ENT ENT exam: Present: normal oropharynx, mucous membranes moist - Neck Neck exam: Present: trachea midline - Chest Chest inspection: Present: symmetric chest wall rise, other (patient has large contusion on the right lower anterior chest). Absent: tenderness - Respiratory Respiratory exam: Present: wheezes, accessory muscle use, prolonged expiratory phase. Absent: respiratory distress, stridor - Cardiovascular Cardiovascular exam: Present: regular rate, irregular rhythm, normal heart sounds - Abdominal Exam Abdominal exam: Present: soft. Absent: distention, tenderness - Back Exam Back exam: Present: full ROM. Absent: tenderness, CVA tenderness (R) - Skin Skin exam: Present: warm, dry - Neurological Exam Neurological exam: Present: alert, oriented X3 Course Vital Signs Temperature 97.9 F 06/15/17 10:00 Pulse Rate 86 06/15/17 10:00 Respiratory Rate 22 06/15/17 10:00 Blood Pressure 155/92 H 06/15/17 10:00 Pulse Oximetry 91 06/15/17 10:00 Temperature 97.9 F 06/15/17 10:00 Pulse Rate 86 06/15/17 11:42 Respiratory Rate 21 06/15/17 11:42 Blood Pressure 120/68 06/15/17 11:42 Pulse Oximetry 91 06/15/17 11:42 Medical Decision Making - [facility] Narrative Medical decision making narrative: CHF exacerbation, COPD exacerbation, aspiration pneumonia, home where he embolus Discuss case with Dr. Grande, patient requiring 2 L by nasal cannula maintaining is to saturations. She will admit patient to observation status Pacemaker interrogated, no defibrillations, no abnormal beats since December - Medical Records Medical records reviewed: Yes: I reviewed the patient's medical records. - Lab Data Lab results reviewed: Yes: I reviewed the patient's lab results. Result diagrams: 06/15/17 10:19 06/15/17 10:19 Lab Results 06/15/17 06/15/17 06/15/17 Range/Units 10:19 10:19 10:19 WBC 9.5 (4.5-11.0) T/MM3 RBC 3.41 L (4.50-5.90) M/MM3 Hgb 11.4 L (13.5-17.5) GM/DL Hct 34.6 L (41-53) % MCV 101.5 H (80-100) UM3 MCH 33.4 (26-34) UUG MCHC 32.9 (31-37) GM/DL RDW Std Deviation 60.6 H (36.9-50.2) FL Plt Count 274 D (130-400) T/MM3 MPV 9.1 L (9.4-12.4) UM3 Immature Gran % (Auto) 0.3 (0.0-0.5) % Neut % (Auto) 80.1 H (33-66) % Lymph % (Auto) 9.2 L (23-45) % Andrew % (Auto) 9.9 H (0-9.0) % Eos % (Auto) 0.2 (0-4) % Baso % (Auto) 0.3 (0-2) % Neut # 7.6 (1.8-7.7) T/MM3 Lymph # 0.9 L (1-4.8) T/MM3 Andrew # 0.9 H (0-0.8) T/MM3 Eos # 0.0 (0-0.5) T/MM3 Baso # 0.0 (0-0.2) T/MM3 Abs Immat Gran (auto) 0.03 (0.00-0.03) T/MM3 Turbidity < 20 (0-20) Sodium 133 L (134-144) MEQ/L Potassium 4.3 (3.6-5) MEQ/L Chloride 98 (98-107) MEQ/L Carbon Dioxide 23 (22-30) MEQ/L Anion Gap 12 (5-15) MEQ/L BUN 12.0 (9-20) MG/DL Creatinine 0.9 (0.8-1.5) MG/DL GFR Calculation 84 BUN/Creatinine Ratio 13 (6-26) RATIO Glucose 186 H (75-110) MG/DL Calculated Osmolality 261 (261-280) MOSM/KG Calcium 9.6 (8.4-10.2) MG/DL Total Bilirubin 1.00 (0.20-1.30) MG/DL Icterus Index < 2 (0-7) AST 24 (17-59) U/L ALT 25 (21-72) U/L Alkaline Phosphatase 137 H (38-126) U/L Troponin I < 0.012 (0-0.12) ng/ml B-Natriuretic Peptide 8890 H (0-175) pg/mL Total Protein 7.2 (6.3-8.2) G/DL Albumin 4.5 (3.5-5.0) G/DL Globulin 2.7 (2.4-3.6) G/DL Albumin/Globulin Ratio 1.7 (1.1-2.2) RATIO Specimen Hemolysis < 15 (0-25) Alcohol, Quantitative <10 (<10) MG/DL - Radiology Data Radiology results reviewed: Yes: I reviewed the patient's radiology results. Chest x-ray: Possible aspiration pneumonia, versus infiltrate, versus edema - EKG Data EKG #1 EKG attestation: Yes: I reviewed and interpreted this EKG. Rate: normal Rhythm: A.Fib When compared to previous EKG there are: no significant changes Interpretation: no acute changes Disposition Clinical Impression: Acute exacerbation of chronic obstructive airways disease Disposition: 02 To [facility] Condition: Improved Time of Disposition: 11:26 - Seen By: physician
--- OUTSIDE RECORDS SUMMARY | 2017-06-15 10:18 | External Medical Summary ---
:1950 Author Organization [employer] Care Team Providers Name Role Phone John Paul Calvillo Provider Role Unavailable Allergies No Known Allergies Problems Problem Type Condition Code Onset Dates Condition Status Problem Automatic implantable cardiac V45.02 Active defibrillator in situ Problem Personal history of alcoholism V11.3 Active Problem Congestive heart failure, 428.0 Active unspecified Problem Type 2 diabetes mellitus with E11.40 Active diabetic neuropathy, unspecified Problem Hyperlipidemia, unspecified E78.5 Active Problem Essential (primary) hypertension I10 Active Problem Unspecified anemia 285.9 Active Problem Nondependent alcohol abuse, 305.00 Active unspecified drunkenness Problem Type 2 diabetes mellitus without E11.9 Active complications Problem Hypertension, benign 401.1 Active Problem Hypertension, benign 401.1 Active Problem Encounter for long-term (current) V58.69 Active use of other medications Assessment Type 2 diabetes mellitus without E11.9 Active complications Problem Atrial fibrillation 427.31 Active Problem Benign hypertensive heart disease 402.11 Active with heart failure Problem Encounter for long-term (current) V58.61 Active use of anticoagulants Medications Medication Code Code Instructions Start End Status Dosage System Date Date Metoprolol [facility][NOTE 3] [address]-28 100 MG Orally 1 tablet Tartrate Once a day [employer] Blood [facility][NOTE 3] 95139-[address] w/Device Dx May 27, as Glucose Kit code 250.00 2014 directed BID. Include meter, strips, and lancets Spironolactone [facility][NOTE 3] [address]-78 25 MG Orally 1 tablet Once a day Gabapentin [facility][NOTE 3] [address]-68 100 MG Orally Dec 01, as Three times a 2015 directed day Gabapentin [facility][NOTE 3] 16151445322 100 Orally as Three times a directed day Lisinopril [facility][NOTE 3] [address]-12 2.5mg Orally 1 tablet Once a day Digitek [facility][NOTE 3] 0 .2 mg Orally 1 tablet Once a day Furosemide [facility][NOTE 3] [address]-47 40 MG Orally 1 tablet Once a day Carvedilol [facility][NOTE 3] [address]-84 6.25 MG Orally 1 tablet Twice a day with food Metformin HCl [facility][NOTE 3] [address]-41 500 MG Orally 2 tablets Twice a day with meals Eliquis [facility][NOTE 3] 8478-7720-39 5mg PO BID 1 tab Procedures Procedure Coding System Code Date IH MicroAlb/Creat Ratio, Urine CPT-4 11905 Jul 12, 2016 URINALYSIS WITH MICROSCOPIC CPT-4 09258 Jul 12, 2016 IH MicroAlb/Creat Ratio, Urine CPT-4 56838 Jul 12, 2016 Results No Known Results Summary Purpose [employer] Submission
--- OUTSIDE RECORDS SUMMARY | 2017-06-15 10:18 | External Medical Summary ---
:1950 Author Organization [employer] Care Team Providers Name Role Thierno Méndez Provider Role Unavailable Allergies No Known Allergies Problems Problem Type Condition ICD-9 Code Onset Dates Condition Status Problem Hypertension, benign 401.1 Active Problem Benign hypertensive heart 402.11 Active disease with heart failure Problem Personal history of alcoholism V11.3 Active Problem Congestive heart failure, 428.0 Active unspecified Problem Nondependent alcohol abuse, 305.00 Active unspecified drunkenness Problem Atrial fibrillation 427.31 Active Problem Encounter for long-term V58.69 Active (current) use of other medications Problem Automatic implantable cardiac V45.02 Active defibrillator in situ Problem Encounter for long-term V58.61 Active (current) use of anticoagulants Medications No Known Medications Results No Known Results Summary Purpose [employer] Submission
--- OUTSIDE RECORDS SUMMARY | 2017-06-15 10:19 | External Medical Summary ---
:1950 Author Organization [employer] Care Team Providers Name Role Phone John Paul Calvillo Provider Role Unavailable Allergies No Known Allergies Problems Problem Type Condition Code Onset Dates Condition Status Problem Atrial fibrillation 427.31 Active Problem Automatic implantable cardiac V45.02 Active defibrillator in situ Problem Encounter for long-term (current) V58.61 Active use of anticoagulants Problem Type 2 diabetes mellitus without E11.9 Active complications Problem Hypertension, benign 401.1 Active Problem Hyperlipidemia, unspecified E78.5 Active Problem Personal history of alcoholism V11.3 Active Problem Congestive heart failure, 428.0 Active unspecified Problem Unspecified anemia 285.9 Active Problem Nondependent alcohol abuse, 305.00 Active unspecified drunkenness Problem Benign hypertensive heart disease 402.11 Active with heart failure Problem Hypertension, benign 401.1 Active Problem Encounter for long-term (current) V58.69 Active use of other medications Medications No Known Medications Results No Known Results Summary Purpose [employer] Submission
--- OUTSIDE RECORDS SUMMARY | 2017-06-15 10:19 | External Medical Summary ---
:1950 Author Organization [employer] Care Team Providers Name Role Thierno Méndez Provider Role Unavailable Allergies No Known Allergies Problems Problem Type Condition ICD-9 Code Onset Dates Condition Status Problem Benign hypertensive heart 402.11 Active disease with heart failure Problem Encounter for long-term V58.69 Active (current) use of other medications Problem Hypertension, benign 401.1 Active Assessment Hyposmolality and/or 276.1 Active hyponatremia Problem Nondependent alcohol abuse, 305.00 Active unspecified drunkenness Problem Personal history of alcoholism V11.3 Active Problem Diabetes Mellitus Type 2, not 250.00 Active stated as uncontrolled Problem Encounter for long-term V58.61 Active (current) use of anticoagulants Problem Atrial fibrillation 427.31 Active Problem Congestive heart failure, 428.0 Active unspecified Problem Automatic implantable cardiac V45.02 Active defibrillator in situ Medications No Known Medications Procedures Procedure Coding System Code Date [facility] CPT-4 23036 Jun 05, 2015 Results No Known Results Summary Purpose [employer] Submission
--- OUTSIDE RECORDS SUMMARY | 2017-06-15 10:19 | External Medical Summary ---
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
--- NOTE | 2017-06-15 11:11 | XRay Report ---
INDICATION: cough, shortness of air PROCEDURE: CHEST 2-VIEWS UPRIGHT (PA & LAT) Encounter: Initial COMPARISON: June 04, 2017 FINDINGS: Increasing airspace disease in the left lower lobe. Areas of chronic scarring in the right apex. Right lung is otherwise clear. No pneumothorax. New small pleural effusions with fluid along the left major fissure. Heart size and mediastinal contours are stable. Left cardiac pacemaker defibrillator. Pulmonary vascularity is unchanged. Impression: Increasing left lower lobe airspace with small pleural effusions could be due to pneumonia or aspiration. .
[2017-06-15 11:58] VITALS: BMI 21.0
--- NOTE | 2017-06-15 13:52 | History & Physical Report ---
<Maria Isabel Young - Last Filed: 06/15/17 13:35> History of Present Illness Date: 06/15/17 Chief complaint: shortness of breath HPI: Patient is a 67 year old male who recently established with Dr. Doll for his primary care. Patient was in to see his doctor yesterday for a "regular checkup " and states everything was good. This morning he woke up and was significantly short of breath. On arrival, EMS found his O2 sats were in the 80's. He was given Solu-Medrol and 2 albuterol treatments while in route the emergency room. In the emergency room his oxygen saturations were brought up to greater than 90 % with 2 L of oxygen per nasal cannula. His white count is normal. Sodium is slightly low. His BNP was 8890. Troponin was negative. Chest x-ray shows "increasing airspace disease in the left lower lobe" with small pleural effusions. His AICD was interrogated per ER report, with no abnormal beats since December. Patient is known to have dementia, his sister is his caregiver. The majority of his information from today's visit was gathered from the emergency room physician, previous hospital notes and patient's PCP. Of note, Dr. Doll recommended patient finish out his current supply of Eliquis and then discontinue. Given his frequent falls, he only wants him to continue on the Plavix. When patient was seen yesterday in the office, the was found to have a large hematoma on the chest due to a recent fall. Review of Systems Comprehensive ROS: completed and no additional positive findings except those as stated - Constitutional Constitutional: Present: other (insomnia-chronic) - Respiratory Respiratory: Present: cough ("cigarette hack"), dyspnea - Gastrointestinal Gastrointestinal: Present: nausea - Integumentary/Breasts Integumentary: Present: other (bruising on chest from recent fall) FOR[facility]LY [facility] Patient Stated Medical History Cardiac Arrhythmia Yes: AFib Congestive Heart Failure Yes Myocardial Infarction Yes: "three of them" Chronic Obstructive Pulmonary Yes Disease (COPD) Pneumonia Yes Diabetes Mellitus Type 2 Yes Surgical History: Appendectomy. Tonsillectomy. Implantable defibrillator - [employer] AICD. Cardiac Ablation Family History: Noncontributory - Social History Smoking status: Current every day smoker (2 packs per day) Substance use type: does not use Substance last used: days (ago) (3) Alcohol intake frequency: a few times a week (patient reports he used to drink at least 2 cocktails a day.) Household members: family (sister and sister's son) Current occupational status: retired Social history: PCP-Dr. Kurtis doll Medications Home Medications Medication Instructions Recorded Confirmed Type Apixaban [Eliquis] 5 mg PO BID #0 11/15/16 06/15/17 History Amiodarone HCl 100 mg PO DAILY #0 tab 01/31/17 06/15/17 History Gabapentin 100 mg PO TID #0 cap 01/31/17 06/15/17 History dilTIAZem HCl [Cardizem Cd] 180 mg PO DAILY #0 cap 01/31/17 06/15/17 History Atorvastatin [Lipitor] 20 mg PO HS 05/11/17 06/15/17 History Carvedilol 25 mg PO BID 05/11/17 06/15/17 History Clopidogrel [Plavix] 75 mg PO DAILY 05/11/17 06/15/17 History Potassium Chloride [K-Dur] 10 meq PO WB 05/11/17 06/15/17 History Furosemide [Lasix] 40 mg PO DAILY 06/04/17 06/15/17 History Aspirin Chewable [ASA] 81 mg PO DAILY 06/15/17 06/15/17 History Cyanocobalamin (B-12) [Vit. B-12] 1,000 mcg PO DAILY 06/15/17 06/15/17 History Hydrocodone/APAP 5/325 [[place] 1 tab PO HS PRN 06/15/17 06/15/17 History 5/325] Magnesium Oxide [Magox] 400 mg PO DAILY 06/15/17 06/15/17 History Allergies Allergy/AdvReac Type Severity Reaction Status Date / Time No Known Drug Allergies AdvReac Unknown Verified 06/15/17 11:09 Exam Vital Signs: Temperature 95.9 F L 06/15/17 11:56 Pulse Rate 95 06/15/17 11:56 Respiratory Rate 20 06/15/17 11:56 Blood Pressure 131/81 06/15/17 11:56 Pulse Oximetry 95 06/15/17 11:56 Height/Weight/BMI: Height 1.8 m Weight 68.4 kg Body Mass Index 21.0 Results - Labs CBC & Chem 7: 06/15/17 10:19 06/15/17 10:19 Labs: Laboratory Results - last 24 hr 06/15/17 06/15/17 06/15/17 10:19 10:19 10:19 WBC 9.5 RBC 3.41 L Hgb 11.4 L Hct 34.6 L MCV 101.5 H MCH 33.4 MCHC 32.9 RDW Std Deviation 60.6 H Plt Count 274 D MPV 9.1 L Immature Gran % (Auto) 0.3 Neut % (Auto) 80.1 H Lymph % (Auto) 9.2 L [place] % (Auto) 9.9 H Eos % (Auto) 0.2 Baso % (Auto) 0.3 Neut # 7.6 Lymph # 0.9 L [place] # 0.9 H Eos # 0.0 Baso # 0.0 Abs Immat Gran (auto) 0.03 Turbidity < 20 Sodium 133 L Potassium 4.3 Chloride 98 Carbon Dioxide 23 Anion Gap 12 BUN 12.0 Creatinine 0.9 GFR Calculation 84 BUN/Creatinine Ratio 13 Glucose 186 H Calculated Osmolality 261 Calcium 9.6 Total Bilirubin 1.00 Icterus Index < 2 AST 24 ALT 25 Alkaline Phosphatase 137 H Troponin I < 0.012 B-Natriuretic Peptide 8890 H Total Protein 7.2 Albumin 4.5 Globulin 2.7 Albumin/Globulin Ratio 1.7 Specimen Hemolysis < 15 Alcohol, Quantitative <10 - Imaging and Cardiology Chest x-ray Additional comments: CXR FINDINGS: Increasing airspace disease in the left lower lobe. Areas of chronic scarring in the right apex. Right lung is otherwise clear. No pneumothorax. New small pleural effusions with fluid along the left major fissure. Heart size and mediastinal contours are stable. Left cardiac pacemaker defibrillator. Pulmonary vascularity is unchanged. Impression: Increasing left lower lobe airspace with small pleural effusions could be due to pneumonia or aspiration. Assessment and Plan (1) CHF exacerbation Current visit: Yes Status: Acute DVT Prophylaxis: SCD's Resuscitation Status: Do Not Resuscitate Assessment and Plan: Assessment Acute on chronic heart failure Acute Dyspnea Atrial fibrillation Chronic anticoagulation Coronary artery disease. Type II diabetes Hypertension Hyperlipidemia Dementia History of alcohol abuse Tobacco addiction Plan Admit patient to outpatient observation under the care of Dr. Grande for dyspnea and hypoxia. With a normal white count, no fever, and nonproductive cough will hold off on antibiotics at this point. Higher likelihood his symptoms are related to CHF versus COPD exacerbation. Will diurese with IV Lasix and start DuoNeb and budesonide breathing treatments. Check daily weights and I&O's. Obtain sputum culture if possible Oxygen to keep sats greater than 90% Monitor patient on cardiac telemetry given his cardiac history. He is currently on Eliquis and Plavix, but his PCP recommended he stop the Eliquis when he is out of his current supply due to his frequent falls. Accu-Cheks 4 times a day Metformin 500 mg 2 tabs twice a day was listed on the patient's med list from his PCPs office. Patient's sister notes that he has not been taking that for "a while" because no refills were given on the prescription. Patient does not check blood sugars. Will restart metformin 500 mg twice a day and check an A1c and adjust as needed. SCDs to bilateral lower extremities for DVT prophylaxis Patient is a DO NOT RESUSCITATE code status. At time of discharge, medical care will return to primary care provider, Dr. Joshua doll. Sepsis Assessment - Evaluation Sepsis screening result: No Definite Risk Hospital Course Summary Disclaimer: The visit summary below is not to be considered part of the above Progress Note. Hospital Course: Acute on chronic heart failure Acute Dyspnea Atrial fibrillation-patient with AICD Chronic anticoagulation Coronary artery disease. Type II diabetes Hypertension Hyperlipidemia Dementia History of alcohol abuse Tobacco addiction 06/15/17 - admission for observation Admit patient to outpatient observation under the care of Dr. Grande for dyspnea and hypoxia. With a normal white count, no fever, and nonproductive cough will hold off on antibiotics at this point. Higher likelihood his symptoms are related to CHF versus COPD exacerbation. Will diurese with IV Lasix and start DuoNeb and budesonide breathing treatments. Check daily weights and I&O's. Obtain sputum culture if possible Oxygen to keep sats greater than 90% Monitor patient on cardiac telemetry given his cardiac history. He is currently on Eliquis and Plavix, but his PCP recommended he stop the Eliquis when he is out of his current supply due to his frequent falls. Accu-Cheks 4 times a day SCDs to bilateral lower extremities for DVT prophylaxis Patient is a DO NOT RESUSCITATE code status. At time of discharge, medical care will return to primary care provider, Dr. Joshua doll <Eliane Grande Filed: 06/15/17 21:52> History of Present Illness Date: 06/15/17 Exam Vital Signs: Temperature 96.5 F L 06/15/17 15:56 Pulse Rate 100 06/15/17 16:00 Respiratory Rate 18 06/15/17 19:50 Blood Pressure 130/70 06/15/17 15:56 Pulse Oximetry 96 06/15/17 19:50 Height/Weight/BMI: Height 1.8 m Weight 68.4 kg Body Mass Index 21.0 Results - Labs CBC & Chem 7: 06/15/17 14:24 06/15/17 10:19 Microbiology Results: Microbiology 06/15/17 15:12 Sputum, Expectorated Gram Stain - Final 06/15/17 15:12 Sputum, Expectorated Sputum Culture - Preliminary Culture Initiated - Results Pending Assessment and Plan (1) CHF exacerbation Current visit: Yes Status: Acute Assessment and Plan: I have independently evaluated and examined this patient. I reviewed the chart, the patient's history, and the [employer] JEWELER/PA's documented findings as above. We discussed and formulated the assessment and plan as above with additions as below: Ochoa is well known from prior hospitalizations. He presents with shortness of breath starting this morning without pleuritic pain. He initially denied cough but was coughing repetitively while evaluated. He denied sputum production initially but later indicated he's been spitting up small amounts of sputum which he can't characterize. He denied fevers or chills but reported he had some sweats earlier today without chest pain. His weight is up 6.4 kg from discharge on May 12 and chest x-ray demonstrates new pleural effusion and increased vascular markings with questionable streaky infiltrate in the left lower lobe of uncertain significance compared to prior film about a week ago. Patient has a known cardiomyopathy with ejection fraction of 25% couple years ago. In addition to problems noted above he has peripheral vascular disease. On examination the patient is fatigued but responds verbally although generally nonspecifically. Respirations were nonlabored but inspiration triggered cough, crackles were present at the bases but no wheezing appreciated Cardiac rhythm is irregular, I do not appreciate a gallop at this time. Chest x-ray reviewed by myself and compared to film in late May, as above. EKG also reviewed by myself demonstrating atrial fibrillation with old anteroseptal MS, low voltage in the limb leads, and incomplete left bundle. Does not appear to be pacing currently. Nonspecific presentation with hypoxia and dyspnea. Data supports acute on chronic systolic heart failure with elevated BNP and weight gain. Continue diuresis with Lasix 40 mg IV twice a day. Coarse cough, nonspecific infiltrate left lower lobe but no documented fever or leukocytosis, minimal sputum production-pneumonia unlikely. Patient incidentally complained of chronic insomnia and requests sleeping medications-mirtazapine initiated at 7.5 mg daily at bedtime. Patient is typically not on home oxygen, anticipate greater than 2 days to stabilize symptoms. With new onset hypoxia will convert to inpatient status. Discussed with Dr. Gonzalez, old records reviewed, chest x-ray/EKG reviewed by myself and compared to prior studies, laboratory data reviewed. Hospital Course Summary Disclaimer: The visit summary below is not to be considered part of the above Progress Note.
[2017-06-15] MEDS ORDERED: ONDANSETRON 4 MG/2 ML INJECTION IVP PRN (13:57)
[2017-06-15] MEDS ORDERED: ACETAMINOPHEN 325 MG TABLET PO PRN (13:57)
[2017-06-15] MEDS ORDERED: FUROSEMIDE 40 MG/4 ML INJECTION IVP ONE (14:06)
[2017-06-15] MEDS: SALINE FLUSH 10ml SYRINGE IVF PRN (14:16)
[2017-06-15] MEDS ORDERED: NICOTINE 21 MG PATCH TD PRN (14:26)
[2017-06-15] MEDS: GABAPENTIN 100 MG CAPSULE PO SCH ×2 (15:55→21:14)
[2017-06-15] MEDS: METFORMIN 500 MG TABLET PO SCH ×2 (15:55→18:04)
[2017-06-15] MEDS: ALBUTEROL/IPRATROPIUM 2.5mg-0.5mg/3ml NEB AEROSOL SCH ×2 (16:01→19:50)
[2017-06-15] MEDS: BUDESONIDE INH.SOLN 0.5mg/2ml NEB AEROSOL SCH ×2 (19:50→19:56)
[2017-06-15] MEDS: MIRTAZAPINE 15 MG TABLET PO SCH ×2 (21:13→21:22)
[2017-06-15] MEDS: SACUBITRIL/VALSARTAN 24/26mg TABLET PO SCH (21:13)
[2017-06-15] MEDS: SENNOSIDES 8.6 MG TABLET PO SCH (21:14)
[2017-06-15] MEDS: CARVEDILOL 12.5 MG TABLET PO SCH (21:15)
[2017-06-15] MEDS: APIXABAN 5 MG TABLET PO SCH (21:15)
[2017-06-15] MEDS: ATORVASTATIN 20 MG TABLET PO SCH (21:15)
[2017-06-15] MEDS ORDERED: HYDROCODONE/APAP 5mg/325mg TABLET PO PRN (21:44)
[2017-06-16] MEDS: ALBUTEROL/IPRATROPIUM 2.5mg-0.5mg/3ml NEB AEROSOL SCH ×4 (07:50→20:05)
[2017-06-16] MEDS: BUDESONIDE INH.SOLN 0.5mg/2ml NEB AEROSOL SCH ×2 (07:50→20:05)
[2017-06-16] MEDS: MAGNESIUM OXIDE 400 MG TABLET PO SCH (08:52)
[2017-06-16] MEDS: APIXABAN 5 MG TABLET PO SCH ×2 (08:53→21:47)
[2017-06-16] MEDS: GABAPENTIN 100 MG CAPSULE PO SCH ×3 (08:53→21:47)
[2017-06-16] MEDS: METFORMIN 500 MG TABLET PO SCH (08:53)
[2017-06-16] MEDS: ASPIRIN 81 MG CHEWABLE TABLET PO SCH (08:53)
[2017-06-16] MEDS: CARVEDILOL 12.5 MG TABLET PO SCH ×2 (08:53→17:51)
[2017-06-16] MEDS: SACUBITRIL/VALSARTAN 24/26mg TABLET PO SCH ×2 (08:53→21:48)
[2017-06-16] MEDS: CLOPIDOGREL 75 MG TABLET PO SCH (08:54)
[2017-06-16] MEDS: NICOTINE PATCH REMOVAL TD SCH (08:55)
[2017-06-16] MEDS: AMIODARONE 200 MG TABLET PO SCH (08:56)
[2017-06-16] MEDS ORDERED: FUROSEMIDE 40 MG TABLET PO SCH (09:00)
--- NOTE | 2017-06-16 09:10 | XRay Report ---
INDICATION: dyspnea, hypoxia, cough PROCEDURE: CHEST 2-VIEWS UPRIGHT (PA & LAT) Encounter: Initial COMPARISON: June 15, 2017 FINDINGS: Lungs are hyperinflated with emphysema. Slight improvement in aeration of the left lower lobe. Small pleural effusions have slightly decreased. No pneumothorax. Heart size and mediastinal contours are stable. Left cardiac pacemaker defibrillator. Pulmonary vascularity remains mildly congested. Impression: Improving aeration of the left lower lobe with decreasing pleural effusions. .
[2017-06-16] MEDS: SALINE FLUSH 10ml SYRINGE IVF PRN ×3 (09:45→22:24)
[2017-06-16] MEDS: FUROSEMIDE 40 MG/4 ML INJECTION IVP SCH ×2 (09:46→17:51)
[2017-06-16] MEDS: INSULIN ASPART 100unit/ml INJECTION SQ PRN ×2 (12:04→17:58)
--- NOTE | 2017-06-16 13:53 | Progress Note ---
<Maria Isabel Young - Last Filed: 06/16/17 15:19> Subjective: Patient seen today sitting in his bed. He reports he feels better and wants to go home. He has no complaints of shortness of breath. He states he did not sleep well, this is chronic for him. Objective Vital signs: Temperature 96.7 F L 06/16/17 08:00 Pulse Rate 78 06/16/17 08:00 Respiratory Rate 16 06/16/17 11:56 Blood Pressure 128/76 06/16/17 08:00 Pulse Oximetry 92 06/16/17 10:30 Height/Weight/BMI: Weight 68.6 kg - Constitutional Present: no acute distress, well nourished, well developed - Routine Respiratory Exam Present: CTA bilaterally, diminished air movement. Absent: wheezes Comments: Especially left lower lobe - Routine Cardiovascular Exam Present: RRR, S1, S2. Absent: murmur - Routine Abdominal Exam Present: soft, normoactive bowel sounds, non distended. Absent: tenderness - Routine Extremities Exam Present: clubbing, no edema, normal capillary refill - Routine Skin Exam Present: dry, warm - Routine Neurological Exam Present: alert - Routine Lymphatic Exam Lymphatic: Absent: adenopathy - Routine Psychiatric Exam Present: normal affect Results - Labs CBC & Chem 7: 06/16/17 04:24 06/16/17 04:24 Assessment and Plan (1) CHF exacerbation Current visit: Yes Status: Acute Assessment and Plan: Assessment Acute on chronic heart failure Acute Dyspnea Chronic insomnia Atrial fibrillation Chronic anticoagulation Coronary artery disease. Type II diabetes Hypertension Hyperlipidemia Dementia History of alcohol abuse Tobacco addiction Plan Chest x-ray shows some improvement. Continue on Lasix and breathing treatments. Still requiring some oxygen. Blood sugar up to 391. Sliding scale insulin was ordered. Increase his metformin to 1000 mg twice a day Sepsis Assessment - Evaluation Sepsis screening result: No Definite Risk Hospital Course Summary Disclaimer: The visit summary below is not to be considered part of the above Progress Note. Hospital Course: Acute on chronic heart failure Acute Dyspnea Atrial fibrillation-patient with AICD Chronic anticoagulation Coronary artery disease. Type II diabetes Hypertension Hyperlipidemia Dementia History of alcohol abuse Tobacco addiction 06/15/17 - admission for observation Admit patient to outpatient observation under the care of Dr. Grande for dyspnea and hypoxia. With a normal white count, no fever, and nonproductive cough will hold off on antibiotics at this point. Higher likelihood his symptoms are related to CHF versus COPD exacerbation. Will diurese with IV Lasix and start DuoNeb and budesonide breathing treatments. Check daily weights and I&O's. Obtain sputum culture if possible Oxygen to keep sats greater than 90% Monitor patient on cardiac telemetry given his cardiac history. He is currently on Eliquis and Plavix, but his PCP recommended he stop the Eliquis when he is out of his current supply due to his frequent falls. Accu-Cheks 4 times a day SCDs to bilateral lower extremities for DVT prophylaxis Patient is a DO NOT RESUSCITATE code status. At time of discharge, medical care will return to primary care provider, Dr. Joshua doll 06/16/17 Chest x-ray shows some improvement. Continue on Lasix and breathing treatments. Still requiring some oxygen. Blood sugar up to 391. Sliding scale insulin was ordered. Increase his metformin to 1000 mg twice a day <Eliane Grande - Last Filed: 06/16/17 17:53> Objective Vital signs: Temperature 98.4 F 06/16/17 16:00 Pulse Rate 81 06/16/17 16:00 Respiratory Rate 22 06/16/17 16:09 Blood Pressure 105/65 06/16/17 16:00 Pulse Oximetry 94 06/16/17 16:00 Height/Weight/BMI: Weight 68.6 kg Results - Labs CBC & Chem 7: 06/16/17 04:24 06/16/17 04:24 Assessment and Plan (1) CHF exacerbation Current visit: Yes Status: Acute Resuscitation Status: Do Not Resuscitate Assessment and Plan: I have independently evaluated and examined this patient. I reviewed the chart, the patient's history, and the [employer]ST[employer]ER/PA's documented findings as above. We discussed and formulated the assessment and plan as above with additions as below: Ochoa is much more alert today. He denies dyspnea today and is unsure what happened yesterday. Continues to have a minor cough but isn't coughing anything up. He thinks the breathing treatments have been helpful but isn't sure that he feels any better after 1 than before one today. He denied nausea or vomiting, denies chest pain, and continues to complain of difficulty sleeping. Patient is fully alert and cooperative, speech is fluent Respirations are nonlabored with good airflow, there are crackles at the left base Slightly irregular rhythm No edema Chest x-ray reviewed by myself-consistent with COPD, effusion is improved as is the infiltrate at the left base. Sputum culture with few neutrophils but many gram-positive cocci in pairs. Cannot exclude aspiration yesterday triggering presentation, weight unchanged, continue diuresis. Oxygenation improved-reassess overnight tonight. Anticipate discharge tomorrow. Metformin resumed-dose increased to pass dose due to persistent hyperglycemia. A1c 6.8 yesterday. Need to clarify when patient discontinued metformin. Hospital Course Summary Disclaimer: The visit summary below is not to be considered part of the above Progress Note.
[2017-06-16] MEDS: METFORMIN 1,000 MG TABLET PO SCH (17:57)
[2017-06-16] MEDS: ATORVASTATIN 20 MG TABLET PO SCH (21:47)
[2017-06-16] MEDS: MIRTAZAPINE 15 MG TABLET PO SCH (21:47)
[2017-06-16] MEDS: SENNOSIDES 8.6 MG TABLET PO SCH (21:47)
[2017-06-17] MEDS: INSULIN ASPART 100unit/ml INJECTION SQ PRN ×2 (06:15→17:28)
[2017-06-17] MEDS: BUDESONIDE INH.SOLN 0.5mg/2ml NEB AEROSOL SCH (08:12)
[2017-06-17] MEDS: ALBUTEROL/IPRATROPIUM 2.5mg-0.5mg/3ml NEB AEROSOL SCH ×3 (08:12→15:47)
[2017-06-17] MEDS: AMIODARONE 200 MG TABLET PO SCH (08:31)
[2017-06-17] MEDS: GABAPENTIN 100 MG CAPSULE PO SCH ×2 (08:32→15:23)
[2017-06-17] MEDS: SACUBITRIL/VALSARTAN 24/26mg TABLET PO SCH (08:32)
[2017-06-17] MEDS: METFORMIN 1,000 MG TABLET PO SCH ×2 (08:32→17:29)
[2017-06-17] MEDS: MAGNESIUM OXIDE 400 MG TABLET PO SCH (08:32)
[2017-06-17] MEDS: CLOPIDOGREL 75 MG TABLET PO SCH (08:32)
[2017-06-17] MEDS: APIXABAN 5 MG TABLET PO SCH (08:32)
[2017-06-17] MEDS: ASPIRIN 81 MG CHEWABLE TABLET PO SCH (08:32)
[2017-06-17] MEDS: SALINE FLUSH 10ml SYRINGE IVF PRN ×2 (08:33→17:29)
[2017-06-17] MEDS: FUROSEMIDE 40 MG/4 ML INJECTION IVP SCH (08:33)
[2017-06-17] MEDS: CARVEDILOL 12.5 MG TABLET PO SCH ×2 (08:33→17:29)
[2017-06-17] MEDS: NICOTINE PATCH REMOVAL TD SCH (08:34)
[2017-06-17] MEDS ORDERED: FALL RISK - PHARMACY CONSULT MC PRN (09:34)
--- NOTE | 2017-06-17 11:32 | Progress Note ---
<Maria Isabel Young - Last Filed: 06/17/17 17:20> Subjective: Severiano is seen lying in his bed today. He reports today is not a good day. He really will not say why. He wants to go home. He doesn't feel that his breathing is any worse. His appetite is good. He ate a good breakfast. Reports his bowels have been moving. He is having no pain, only minimal cough, is not lightheaded or dizzy. Objective Vital signs: Temperature 97.4 F 06/17/17 07:39 Pulse Rate 86 06/17/17 08:01 Respiratory Rate 20 06/17/17 08:12 Blood Pressure 110/65 06/17/17 07:39 Pulse Oximetry 95 06/17/17 08:12 Height/Weight/BMI: Weight 71.7 kg - Constitutional Present: no acute distress, well nourished, well developed - Routine Respiratory Exam Present: crackles (noted right midlung), distant breath sounds, diminished air movement. Absent: wheezes - Routine Cardiovascular Exam Present: irregularly irregular. Absent: murmur - Routine Abdominal Exam Present: soft, normoactive bowel sounds, non distended. Absent: tenderness - Routine Extremities Exam Present: no edema, normal capillary refill - Routine Skin Exam Present: dry, warm, ecchymosis ( right arm) - Routine Neurological Exam Present: alert, normal speech - Routine Lymphatic Exam Lymphatic: Absent: adenopathy - Routine Psychiatric Exam Present: normal affect, cooperative Results - Labs CBC & Chem 7: 06/17/17 15:49 06/17/17 04:22 Assessment and Plan (1) CHF exacerbation Current visit: Yes Status: Acute Assessment and Plan: Assessment Acute leukocytosis Acute on chronic heart failure Acute Dyspnea Atrial fibrillation-patient with AICD Chronic anticoagulation Coronary artery disease. Type II diabetes Hypertension Hyperlipidemia Dementia History of alcohol abuse Tobacco addiction Plan His white count went from 4.6-15.2 this morning. He did have Solu-Medrol en route to the emergency room prior to admission which might account for this. Chest x-ray yesterday was looking better. No significant change in his clinical status. Repeat CBC again later this afternoon. His BUN and creatinine have increased from his diuresis. Lasix was put on hold. Ambulatory oxygen testing revealed that he will need home oxygen. Will talk to patient case manager. Case discussed with Dr. Grande and she will determine further plan of care. Sepsis Assessment - Evaluation Sepsis screening result: No Definite Risk Hospital Course Summary Disclaimer: The visit summary below is not to be considered part of the above Progress Note. Hospital Course: Acute on chronic heart failure Acute Dyspnea Atrial fibrillation-patient with AICD Chronic anticoagulation Coronary artery disease. Type II diabetes Hypertension Hyperlipidemia Dementia History of alcohol abuse Tobacco addiction 06/15/17 - admission for observation Admit patient to outpatient observation under the care of Dr. Grande for dyspnea and hypoxia. With a normal white count, no fever, and nonproductive cough will hold off on antibiotics at this point. Higher likelihood his symptoms are related to CHF versus COPD exacerbation. Will diurese with IV Lasix and start DuoNeb and budesonide breathing treatments. Check daily weights and I&O's. Obtain sputum culture if possible Oxygen to keep sats greater than 90% Monitor patient on cardiac telemetry given his cardiac history. He is currently on Eliquis and Plavix, but his PCP recommended he stop the Eliquis when he is out of his current supply due to his frequent falls. Accu-Cheks 4 times a day SCDs to bilateral lower extremities for DVT prophylaxis Patient is a DO NOT RESUSCITATE code status. At time of discharge, medical care will return to primary care provider, Dr. Joshua doll 06/16/17 Chest x-ray shows some improvement. Continue on Lasix and breathing treatments. Still requiring some oxygen. Blood sugar up to 391. Sliding scale insulin was ordered. Increase his metformin to 1000 mg twice a day <Eliane Grande - Last Filed: 06/17/17 17:55> Objective Vital signs: Temperature 98.5 F 06/17/17 15:21 Pulse Rate 75 06/17/17 17:30 Respiratory Rate 20 06/17/17 16:04 Blood Pressure 101/61 06/17/17 15:21 Pulse Oximetry 93 06/17/17 17:30 Height/Weight/BMI: Weight 69.7 kg Results - Labs CBC & Chem 7: 06/17/17 15:49 06/17/17 04:22 Assessment and Plan (1) CHF exacerbation Current visit: Yes Status: Acute Resuscitation Status: Do Not Resuscitate Assessment and Plan: I have independently evaluated and examined this patient. I reviewed the chart, the patient's history, and the [employer]/PA's documented findings as above. We discussed and formulated the assessment and plan as above with additions as below: Severiano reported that he felt fine when I saw him. His only complaint was that he can't sleep. He denied dyspnea although had minor throat clearing cough intermittently while eating lunch in my presence. He denied wheezing or sputum production. Overnight oximetry was obtained last night (although patient reports that he didn't sleep well) and oxygen saturation was 88% or lower for 7 minutes total with lowest saturation below 80%. Subsequently ambulatory oximetry was obtained on room air at which time saturation dropped to 77% and required 4 L supplemental oxygen to maintain saturation above 90 while ambulating. At rest the patient is typically been above 90% with very rare brief desaturations. Respirations are nonlabored, no wheezing is present, slightly decreased breath sounds at the bases. Repeat white count was 12.4 with 92% neutrophils-strongly suggestive of steroid effect from prior dose. Presence of cough while eating raises the question of intermittent aspiration; something I questioned yesterday given rapid resolution of presenting symptoms. Patient clearly has underlying chronic systolic heart failure with elevated BNP on admission-diuresis has been pushed and creatinine has risen such that IV Lasix will be discontinued and oral Lasix resumed at home dose tomorrow. Chest x-ray is without evidence of focal infiltrate or pulmonary edema by my review, there is minor pleural effusion as previously seen by vascular markings are improved from admission. Overall he feels Severiano is stable for discharge at this time but will require supplemental oxygen at 2 L at night and 4 L with activity. At discharge in early May he was started on Entresto which is not on current home medication list-will discuss with his sister when she arrives. Multiple visits with patient throughout the day, discussed with nursing/RT/case management. Old records reviewed. In addition to above diagnoses please add: #1 COPD #2 nocturnal and exertional hypoxia - Time spent with patient greater than 35 minutes Coordination of Care: >50% of visit spent providing counseling/coordination of care Hospital Course Summary Disclaimer: The visit summary below is not to be considered part of the above Progress Note.
[2017-06-17 15:22] VITALS: BP 101/61; TEMP 98.5
[2017-06-17 16:05] VITALS: RESP 20
[2017-06-17 17:30] VITALS: PULSE 75; O2SAT 93
--- NOTE | 2017-06-17 18:03 | Discharge Instructions ---
Discharge Plan - Med Rec/Dispo Referrals/Follow Up: Janis Steiner MD [Family Provider] - 1 Week Marc Curran MD [Physician] - (As previously instructed) Prescriptions: New Nicotine Polacrilex [Nicorette] 2 mg BC Q1H PRN #25 gum PRN Reason: tobacco urge Cefdinir 300 mg PO BID #14 cap Mirtazapine [Remeron] 7.5 mg PO HS #15 tab Continue Apixaban [Eliquis] 5 mg PO BID #0 dilTIAZem HCl [Cardizem Cd] 180 mg PO DAILY #0 cap Gabapentin 100 mg PO TID #0 cap Atorvastatin [Lipitor] 20 mg PO HS Clopidogrel [Plavix] 75 mg PO DAILY Carvedilol 25 mg PO BID Potassium Chloride [K-Dur] 10 meq PO WB Sacubitril/Valsartan 24-26 [Entresto 24 mg-26 mg Tablet] 1 tab PO BID #30 tablet Fluticasone/Salmeterol 250/50 [Advair 250-50 Diskus] 1 puff INH BID #1 inh Cyanocobalamin (B-12) [Vit. B-12] 1,000 mcg PO DAILY Hydrocodone/APAP 5/325 [[place] 5/325] 1 tab PO HS PRN PRN Reason: Pain Albuterol Inhaler [Ventolin Hfa 90 mcg/actuation] 2 puff ORAL INH Q4H PRN #2 inhaler PRN Reason: Shortness Of Air/Wheezing Amiodarone HCl 100 mg PO DAILY #0 tab Furosemide [Lasix] 40 mg PO DAILY Aspirin Chewable [ASA] 81 mg PO DAILY Magnesium Oxide [Magox] 400 mg PO DAILY Discharge Instructions/Outpatient Orders: Final Provider Discharge Instructions Location: Determined By Patient - Disposition 01 Discharged Home, Self-Care
[2017-06-17] MEDS ORDERED: CEFDINIR 300 MG CAPSULE PO SCH (18:15)
--- NOTE | 2017-06-17 19:31 | Discharge Instructions ---
Discharge Plan - Med Rec/Dispo Referrals/Follow Up: Marc Curran MD [Physician] - (As previously instructed) aJnis Steiner MD [Family Provider] - 1 Week Prescriptions: New Nicotine Polacrilex [Nicorette] 2 mg BC Q1H PRN #25 gum PRN Reason: tobacco urge Cefdinir 300 mg PO BID #14 cap Mirtazapine [Remeron] 7.5 mg PO HS #15 tab Continue Apixaban [Eliquis] 5 mg PO BID #0 dilTIAZem HCl [Cardizem Cd] 180 mg PO DAILY #0 cap Gabapentin 100 mg PO TID #0 cap Atorvastatin [Lipitor] 20 mg PO HS Clopidogrel [Plavix] 75 mg PO DAILY Carvedilol 25 mg PO BID Potassium Chloride [K-Dur] 10 meq PO WB Sacubitril/Valsartan 24-26 [Entresto 24 mg-26 mg Tablet] 1 tab PO BID #30 tablet Fluticasone/Salmeterol 250/50 [Advair 250-50 Diskus] 1 puff INH BID #1 inh Cyanocobalamin (B-12) [Vit. B-12] 1,000 mcg PO DAILY Hydrocodone/APAP 5/325 [[place] 5/325] 1 tab PO HS PRN PRN Reason: Pain Albuterol Inhaler [Ventolin Hfa 90 mcg/actuation] 2 puff ORAL INH Q4H PRN #2 inhaler PRN Reason: Shortness Of Air/Wheezing Amiodarone HCl 100 mg PO DAILY #0 tab Furosemide [Lasix] 40 mg PO DAILY Aspirin Chewable [ASA] 81 mg PO DAILY Magnesium Oxide [Magox] 400 mg PO DAILY Discharge Instructions/Outpatient Orders: Final Provider Discharge Instructions Location: Determined By Patient - Disposition 01 Discharged Home, Self-Care
--- NOTE | 2017-06-17 19:40 | Discharge Summary ---
Discharge Information Date of admission: 06/15/17 21:50 Anticipated date of discharge: 06/17/17 Attending Physician: Eliane Grande MD Primary care physician: Janis Doll MD - Discharge Diagnosis (1) CHF exacerbation Discharge Diagnosis: Acute on chronic systolic heart failure Acute Dyspnea Bronchitis Hypoxia, nocturnal/exertional Possible episodic aspiration Atrial fibrillation-patient with AICD Chronic anticoagulation Coronary artery disease. Type II diabetes Hypertension Hyperlipidemia Dementia History of alcohol abuse Tobacco addiction - Procedures Procedures: Nocturnal oximetry on the night of 06/16-06/17 on room air revealed episodic desaturations with 7 minutes saturations below 89% and the lowest saturation in the mid 70s. It's worth noting that the patient describes sleeping minimally during the night and the study likely underestimates the degree of nocturnal desaturation. Ambulatory oximetry on room air on 06/17-initial oxygen saturation 90%, after ambulating 150 feet oxygen saturation dropped to 77%. Patient required 4 L supplemental oxygen to maintain saturation above 90. - Laboratory Labs: On admission white count was 9.5, hemoglobin 11.4. Differential was unremarkable. Sodium was 133 and creatinine 0.9. Liver enzymes normal. ProBNP 8890. A1c 6.8. 06/17/17 15:49 06/17/17 04:22 - Microbiology Sputum culture positive strep pneumonia - Radiology Radiology: Admission chest x-ray demonstrated streaky infiltrate at the left base and small pleural effusion. There is fluid in the left major fissure. Follow-up film on 06/16 demonstrated hyperinflation consistent with emphysema and improvement in aeration of the left lobe, pleural effusions were slightly decreased compared to prior day. On 06/17 chest x-ray showed decreased fluid in the fissures and general reduction in vascular markings, persistent small pleural effusions, and improvement in infiltrate initially identified. History of Present Illness HPI: Patient is a 67 year old male who recently established with Dr. Doll for his primary care. Patient was in to see his doctor yesterday for a "regular checkup " and states everything was good. This morning he woke up and was significantly short of breath. On arrival, EMS found his O2 sats were in the 80's. He was given Solu-Medrol and 2 albuterol treatments while in route the emergency room. In the emergency room his oxygen saturations were brought up to greater than 90 % with 2 L of oxygen per nasal cannula. His white count is normal. Sodium is slightly low. His BNP was 8890. Troponin was negative. Chest x-ray shows "increasing airspace disease in the left lower lobe" with small pleural effusions. His AICD was interrogated per ER report, with no abnormal beats since December. Patient is known to have dementia, his sister is his caregiver. The majority of his information from today's visit was gathered from the emergency room physician, previous hospital notes and patient's PCP. Of note, Dr. Doll recommended patient finish out his current supply of Eliquis and then discontinue. Given his frequent falls, he only wants him to continue on the Plavix. When patient was seen yesterday in the office, the was found to have a large hematoma on the chest due to a recent fall. Hospital Course This is a general summary of the patient's hospital course. For more details refer to the complete medical record. Hospital course: Acute on chronic systolic heart failure Acute Dyspnea with hypoxia Bronchitis Hypoxia, nocturnal/exertional Atrial fibrillation-patient with AICD Chronic anticoagulation Coronary artery disease. Type II diabetes Hypertension Hyperlipidemia Dementia History of alcohol abuse Tobacco addiction Hospital course observation Patient was admitted with acute dyspnea. BNP was significantly elevated on admission and chest x-ray revealed slight increased vascular markings, fluid in the fissure and small pleural effusions. There was some streaky infiltrate at the left base but clinically no indication of infection. Subsequently sputum culture grew out strep pneumococcus although there were few neutrophils in the sputum culture-it's unclear if this reflects oral contamination or underlying bronchitis but given patient's respiratory fragility I've opted to treat with one-week course of cephalosporin. Antibiotics were initiated on the date of discharge. The patient was treated with IV diuretics during hospitalization. Fluid volume is difficult to ascertain as urine output could not be readily monitored and weights were inconsistent with discharge weight 69.7 kg which was higher than admission weight but likely reflects an error in one of the measured weights. Patient had no chest pain throughout the hospitalization and respiratory symptoms subsided rapidly. With diuresis BUN/creatinine climbed modestly and will require reassessment as an outpatient in approximately one week. Patient's chronic regimen for cardiac disease was continued throughout the hospital course. Severiano has fairly significant underlying COPD as well but did not appear to have a COPD exacerbation as he was not wheezing and did not describe exertional dyspnea. Nocturnal hypoxia was demonstrated as noted previously as was exertional hypoxemia. At rest oxygen saturation was typically well-maintained on room air. Supplemental oxygen was coordinated for discharge with 2 L at night and 4 L with activities. Patient was strongly advised to discontinue tobacco use and told he absolutely cannot smoke while using oxygen. Blood sugar was elevated on admission and remained moderately elevated during hospitalization likely reflecting steroid dose received per EMS. Steroids were not continued during the hospitalization and anticipate normalization of blood sugars short period of time without further interventions. Hemoglobin A1c was 6.8. The patient complained repetitively of difficulty sleeping both at home and during the hospitalization. Low-dose mirtazapine was initiated at 7.5 mg at bedtime. This was of minimal benefit with sleep during the hospitalization but he requested that it be continued at discharge rationalizing that he would sleep better in his own bed but he did in an unfamiliar environment. Patient was felt stable for discharge on 06/17. New prescriptions were provided for mirtazapine and Cefdinir. Patient is asked to follow-up with Dr. doll in approximately one week and with Dr. Curran as previously scheduled. Discharge Plan - Med Rec/Dispo Referrals/Follow Up: Marc Curran MD [Physician] - (As previously instructed) Janis Doll MD [Family Provider] - 1 Week Ammy Instructions: Heart Failure (DC), COPD (Chronic Obstructive Pulmonary Disease) (DC) Prescriptions: New Nicotine Polacrilex [Nicorette] 2 mg BC Q1H PRN #25 gum PRN Reason: tobacco urge Cefdinir 300 mg PO BID #14 cap Mirtazapine [Remeron] 7.5 mg PO HS #15 tab Continue Apixaban [Eliquis] 5 mg PO BID #0 dilTIAZem HCl [Cardizem Cd] 180 mg PO DAILY #0 cap Gabapentin 100 mg PO TID #0 cap Atorvastatin [Lipitor] 20 mg PO HS Clopidogrel [Plavix] 75 mg PO DAILY Carvedilol 25 mg PO BID Potassium Chloride [K-Dur] 10 meq PO WB Sacubitril/Valsartan 24-26 [Entresto 24 mg-26 mg Tablet] 1 tab PO BID #30 tablet Fluticasone/Salmeterol 250/50 [Advair 250-50 Diskus] 1 puff INH BID #1 inh Cyanocobalamin (B-12) [Vit. B-12] 1,000 mcg PO DAILY Hydrocodone/APAP 5/325 [[place] 5/325] 1 tab PO HS PRN PRN Reason: Pain Albuterol Inhaler [Ventolin Hfa 90 mcg/actuation] 2 puff ORAL INH Q4H PRN #2 inhaler PRN Reason: Shortness Of Air/Wheezing Amiodarone HCl 100 mg PO DAILY #0 tab Furosemide [Lasix] 40 mg PO DAILY Aspirin Chewable [ASA] 81 mg PO DAILY Magnesium Oxide [Magox] 400 mg PO DAILY Discharge Instructions/Outpatient Orders: Final Provider Discharge Instructions Location: Determined By Patient - Disposition 01 Discharged Home, Self-Care
--- NOTE | 2017-06-18 10:39 | XRay Report ---
INDICATION: hypoxia PROCEDURE: CHEST 2-VIEWS UPRIGHT (PA & LAT) Encounter: Initial COMPARISON: June 16, 2017 FINDINGS: Worsening airspace consolidation in the peripheral right upper lobe. Hazy airspace disease in the left lower lobe is stable. No pneumothorax. Small pleural effusions are stable. Heart size and mediastinal contours are unchanged. Pulmonary vascularity is stable. Left pacemaker defibrillator. Impression: Worsening right upper lobe airspace disease. .
== END 2017-06-17 20:28 | disposition home or self-care (01) | DRG 293 ==
LOC: ED 09:59 → MED 09:59
PROVIDERS: ADMIT Internal Medicine; ATTEND Internal Medicine